=== PATIENT | male | born 1955 | race Caucasian/White ===

== ENCOUNTER 2019-05-21 23:46 | Emergency (ER) | payer OTHER ==
[2019-05-21] MEDS ORDERED: LORazepam 2 MG/ML INJ IV STA (23:50)
[2019-05-21] MEDS ORDERED: SODIUM CHLORIDE 0.9% 1,000 ML IV STA (23:55)
[2019-05-22 00:10] LABS: Glucose,Whole Blood 179 mg/dL (75-99)
[2019-05-22] MEDS ORDERED: LORazepam 2 MG/ML INJ IV STA ×2 (00:25→01:19)
[2019-05-22 00:50] LABS: Appearance,Urine Clear (Clear); Bacteria,Urine Rare /hpf; Bilirubin,Urine Negative (Negative); Blood,Urine Moderate (Negative); Color,Urine Light Yellow; Glucose,Urine (UA) Trace (Negative); Hyaline Casts,Urine 4 /lpf (0-2); Ketones,Urine 1+ (Negative); Leukocyte Esterase,Urine Negative (Negative); Mucus,Urine Rare /hpf; Nitrite,Urine Negative (Negative); Protein,Urine Trace (Negative); RBC,Urine 1 /hpf (0-5); Specific Gravity,Urine 1.015 (1.001-1.035); Squamous Epithelial Cell,Urine <1 /hpf (0-4); Urobilinogen,Urine <2.0 mg/dL (<2.0); WBC,Urine 3 /hpf (0-5)
[2019-05-22 00:54] LABS: Amphetamine Screen,Urine Not Detected (NotDetected); Barbiturate Screen,Urine Not Detected (NotDetected); Benzodiazepines Screen,Urine Not Detected (NotDetected); Cocaine Screen,Urine Not Detected (NotDetected); Methadone Screen, Urine Not Detected (NotDetected); Opiate Screen,Urine Not Detected (NotDetected); Oxycodone Screen, Urine Not Detected (NotDetected); Phencyclidine Screen,Urine Not Detected (NotDetected); Tricyclic Antidepressant,Urine Not Detected (NotDetected); Urn Cannabinoid Scrn Detected (NotDetected)
[2019-05-22] MEDS ORDERED: MIDAZOLAM 1 MG/ML 5 ML VIAL IV STA (01:05)
--- NOTE | 2019-05-22 01:14 | CT ---
EXAMINATION TYPE: CT brain wo con DATE OF EXAM: 05/22/2019 COMPARISON: None HISTORY: Seizure CT DLP: mGycm Automated exposure control for dose reduction was used. There is mild cerebral cortical atrophy. There is no mass effect nor midline shift. There is no sign of intracranial hemorrhage. The calvarium is intact. IMPRESSION: Mild atrophy. No acute intracranial abnormality.
[2019-05-22] MEDS ORDERED: SODIUM CHLORIDE 0.9% 1,000 ML IV ONE (01:29)
--- NOTE | 2019-05-22 01:29 | ED ---
Seizure HPI - General Chief Complaint: Seizure Stated Complaint: abd pain Time Seen by Provider: 05/21/19 23:55 Source: patient, EMS Mode of arrival: EMS Limitations: no limitations - History of Present Illness Initial Comments: Gene is a 64-year-old woman who presents the emergency department with altered mental status after an apparent call for abdominal pain. EMS reports they were called at home for abdominal pain, patient outside attempting to urinate. Patient has been minimally verbal with them grunting and combative. Patient offered no history. Within 3 minutes of arrival in the emergency department the patient had a tonic-clonic seizure requiring Ativan. brother arrived in the emergency department to provide further history. 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 Patient has refused to see a doctor since completing treatment for the cancer. She reports that the patient suffers from chronic abdominal pain, eats Tums constantly and has a diet consists primarily of candy and soda. He reports that this evening he thought he heard the patient fall however didn't hear him get back up so when he went to check on him feel the patient wandering around house grunting not speaking and appeared to be confused. He reports that the patient seemed to be leaking urine and wasn't sure if he was trying to urinate. Mother reports that the patient has a distant history of alcoholism but has been relatively sober for the past 3 years. He states that the patient needed had maybe 5 beers over the past 5 years but is not a daily drinker. He has no seizure history. Smokes marijuana but doesn't believe his brother uses any other drugs. - Related Data Allergies Allergy/AdvReac Type Severity Reaction Status Date / Time No Known Allergies Allergy Verified 05/22/19 00:01 Review of Systems ROS Statement: Those systems with pertinent positive or pertinent negative responses have been documented in the HPI. ROS Other: All systems not noted in ROS Statement are negative. Past Medical History Additional Past Medical History / Comment(s): UNKNOWN History of Any Multi-Drug Resistant Organisms: Unobtainable Additional Past Surgical History / Comment(s): UNKNOWN Past Psychological History: Unable to Obtain Smoking Status: Unknown if ever smoked Past Alcohol Use History: Unable to Obtain Past Drug Use History: Unable to Obtain General Exam - General Exam Comments Initial Comments: Physical Exam GENERAL: Chronically ill appearing Underweight HENT: Normocephalic, Atraumatic. EYES: PERRL, EOMI PULMONARY: Unlabored respirations. No audible rales rhonchi or wheezing was noted. CARDIOVASCULAR: Tachycardic ABDOMEN: Scaphoid SKIN: Dry : Normal external genitalia NEUROLOGIC: Non-verbal, grunting Active tonic clonic sizure MUSCULOSKELETAL: Generalized atrophy No obvious injury PSYCHIATRIC: Unable to evaluate Limitations: no limitations Course Vital Signs 05/21/19 05/22/19 05/22/19 23:50 00:07 00:36 Temperature Pulse Rate 118 H 114 H 109 H Respiratory 20 18 18 Rate Blood Pressure 148/95 159/100 152/95 O2 Sat by Pulse 100 100 Oximetry 05/22/19 05/22/19 05/22/19 02:00 02:15 02:50 Temperature Pulse Rate 112 H 118 H 93 Respiratory 16 16 16 Rate Blood Pressure 129/104 207/128 174/111 O2 Sat by Pulse 100 100 96 Oximetry 05/22/19 02:54 Temperature 98.6 F Pulse Rate Respiratory Rate Blood Pressure O2 Sat by Pulse Oximetry Procedures - Intubation Sedative: Etomidate Paralytic: Rocuronium Laryngoscope: Alexsandra Size: 4 ET Tube Size: 8 ET Tube Uncuffed: No Tube Secured Depth (cm): 26 Tube Secured Location: lips Tube Placement Confirmation: visualized tube passing through cords, equal breath sounds bilaterally, no breath sounds over epigastrium, confirmation by capnometry Patient Tolerated Procedure: no complications Intubation Complications: none Medical Decision Making - Medical Decision Making The patient was seen and evaluated upon arrival the emergency department, patient was grunting and agitated not providing any history and upon arrival began having tonic-clonic seizure activity. Ativan was ordered. Seizure activity stopped. Patient was assessed labs were obtained CT of the head was ordered Patient seemed to be agitated in the postictal state and additional doses of Ativan and Versed were ordered and administered Despite these relatively high doses of benzodiazepines the patient continued to be agitated and fighting at his restraints, pulling it IV Concerning the patient did not return to baseline within one hour after his seizure decision was made to intubate and sedate the patient Patient's labs resulted with multiple abnormalities most significant for a lactic acid of 14 likely reactive to the patient's recent seizure Brother arrived at bedside was able to provide further history, uncertain if the patient had a seizure at home and was postictal, Brother didn't think he had her to falling. The patient does suffer from chronic abdominal pain is very poor diet. His previous cancer patient with no follow-up. At this time Brother agrees with plan for intubation. Patient was intubated without difficulty. Patient was taken for computed tomography scan of the chest abdomen and pelvis for further assessment. Computed tomography scan resulted with a thickened gastric lining, thickened bladder, calcified aorta but no acute findings per my review. Radiology review agrees with this At this time I have no cause for the patient's acute new onset seizure and status epilepticus with altered mental status. Patient responding well to propofol. Patient noted to be hypertensive and was given a dose of labetalol. This time patient care was discussed with the transferring physician Dr. Luna at [facility] who accepts transfer for admission to ICU for evaluation by neurology. - Lab Data Result diagrams: 05/21/19 00:00 05/21/19 00:00 Lab Results 05/21/19 05/21/19 05/22/19 Range/Units 00:00 00:00 00:08 WBC 12.2 H (3.8-10.6) k/uL RBC 4.87 (4.30-5.90) m/uL Hgb 14.6 (13.0-17.5) gm/dL Hct 46.8 (39.0-53.0) % MCV 96.0 (80.0-100.0) fL MCH 29.9 (25.0-35.0) pg MCHC 31.2 (31.0-37.0) g/dL RDW 13.6 (11.5-15.5) % Plt Count 271 (150-450) k/uL Neutrophils % 79 % Lymphocytes % 14 % Monocytes % 5 % Eosinophils % 0 % Basophils % 0 % Neutrophils # 9.6 H (1.3-7.7) k/uL Lymphocytes # 1.7 (1.0-4.8) k/uL Monocytes # 0.6 (0-1.0) k/uL Eosinophils # 0.0 (0-0.7) k/uL Basophils # 0.1 (0-0.2) k/uL Sample Site ABG pH (7.35-7.45) ABG pCO2 (35-45) mmHg ABG pO2 (83-108) mmHg ABG HCO3 (21-25) mmol/L ABG Total CO2 (19-24) mmol/L ABG O2 Saturation (94-97) % ABG Base Excess mmol/L Jovani Test FiO2 % Sodium 146 H (137-145) mmol/L Potassium 5.5 H (3.5-5.1) mmol/L Chloride 105 (98-107) mmol/L Carbon Dioxide 21 L (22-30) mmol/L Anion Gap 20 mmol/L BUN 10 (9-20) mg/dL Creatinine 0.99 (0.66-1.25) mg/dL Est GFR (CKD-EPI)AfAm >90 (>60 ml/min/1.73 sqM) Est GFR (CKD-EPI)NonAf 81 (>60 ml/min/1.73 sqM) Glucose 179 H (74-99) mg/dL POC Glucose (mg/dL) 179 H (75-99) mg/dL POC Glu Automatic Chief ID Wednesday, Monserrat Plasma Lactic Acid Aaron (0.7-2.0) mmol/L Calcium 10.6 H (8.4-10.2) mg/dL Total Bilirubin 0.4 (0.2-1.3) mg/dL AST 42 (17-59) U/L ALT 23 (4-49) U/L Alkaline Phosphatase 91 (38-126) U/L Total Protein 8.2 (6.3-8.2) g/dL Albumin 5.0 (3.5-5.0) g/dL Lipase 86 (23-300) U/L Urine Color Urine Appearance (Clear) Urine pH (5.0-8.0) Ur Specific [place] (1.001-1.035) Urine Protein (Negative) Urine Glucose (UA) (Negative) Urine Ketones (Negative) Urine Blood (Negative) Urine Nitrite (Negative) Urine Bilirubin (Negative) Urine Urobilinogen (<2.0) mg/dL Ur Leukocyte Esterase (Negative) Urine RBC (0-5) /hpf Urine WBC (0-5) /hpf Ur Squamous Epith Cells (0-4) /hpf Urine Bacteria (None) /hpf Hyaline Casts (0-2) /lpf Urine Mucus (None) /hpf Salicylates <1.0 mg/dL Urine Opiates Screen (NotDetected) Ur Oxycodone Screen (NotDetected) Urine Methadone Screen (NotDetected) Ur Propoxyphene Screen (NotDetected) Acetaminophen <10.0 ug/mL Ur Barbiturates Screen (NotDetected) U Tricyclic Antidepress (NotDetected) Ur Phencyclidine Scrn (NotDetected) Ur Amphetamines Screen (NotDetected) U Methamphetamines Scrn (NotDetected) U Benzodiazepines Scrn (NotDetected) Urine Cocaine Screen (NotDetected) U Marijuana (THC) Screen (NotDetected) Serum Alcohol <10 mg/dL 05/22/19 05/22/19 05/22/19 Range/Units 00:09 00:21 02:21 WBC (3.8-10.6) k/uL RBC (4.30-5.90) m/uL Hgb (13.0-17.5) gm/dL Hct (39.0-53.0) % MCV (80.0-100.0) fL MCH (25.0-35.0) pg MCHC (31.0-37.0) g/dL RDW (11.5-15.5) % Plt Count (150-450) k/uL Neutrophils % % Lymphocytes % % Monocytes % % Eosinophils % % Basophils % % Neutrophils # (1.3-7.7) k/uL Lymphocytes # (1.0-4.8) k/uL Monocytes # (0-1.0) k/uL Eosinophils # (0-0.7) k/uL Basophils # (0-0.2) k/uL Sample Site right radial ABG pH 7.38 (7.35-7.45) ABG pCO2 35 (35-45) mmHg ABG pO2 240 H (83-108) mmHg ABG HCO3 21 (21-25) mmol/L ABG Total CO2 22 (19-24) mmol/L ABG O2 Saturation 99.4 H (94-97) % ABG Base Excess -4.4 mmol/L Jovani Test Yes FiO2 50 % Sodium (137-145) mmol/L Potassium (3.5-5.1) mmol/L Chloride (98-107) mmol/L Carbon Dioxide (22-30) mmol/L Anion Gap mmol/L BUN (9-20) mg/dL Creatinine (0.66-1.25) mg/dL Est GFR (CKD-EPI)AfAm (>60 ml/min/1.73 sqM) Est GFR (CKD-EPI)NonAf (>60 ml/min/1.73 sqM) Glucose (74-99) mg/dL POC Glucose (mg/dL) (75-99) mg/dL POC Glu Automatic Chief ID Plasma Lactic Acid Aaron 14.6 H* (0.7-2.0) mmol/L Calcium (8.4-10.2) mg/dL Total Bilirubin (0.2-1.3) mg/dL AST (17-59) U/L ALT (4-49) U/L Alkaline Phosphatase (38-126) U/L Total Protein (6.3-8.2) g/dL Albumin (3.5-5.0) g/dL Lipase (23-300) U/L Urine Color Light Yellow Urine Appearance Clear (Clear) Urine pH 5.0 (5.0-8.0) Ur Specific [place] 1.015 (1.001-1.035) Urine Protein Trace H (Negative) Urine Glucose (UA) Trace H (Negative) Urine Ketones 1+ H (Negative) Urine Blood Moderate H (Negative) Urine Nitrite Negative (Negative) Urine Bilirubin Negative (Negative) Urine Urobilinogen <2.0 (<2.0) mg/dL Ur Leukocyte Esterase Negative (Negative) Urine RBC 1 (0-5) /hpf Urine WBC 3 (0-5) /hpf Ur Squamous Epith Cells <1 (0-4) /hpf Urine Bacteria Rare H (None) /hpf Hyaline Casts 4 H (0-2) /lpf Urine Mucus Rare H (None) /hpf Salicylates mg/dL Urine Opiates Screen Not Detected (NotDetected) Ur Oxycodone Screen Not Detected (NotDetected) Urine Methadone Screen Not Detected (NotDetected) Ur Propoxyphene Screen Not Detected (NotDetected) Acetaminophen ug/mL Ur Barbiturates Screen Not Detected (NotDetected) U Tricyclic Antidepress Not Detected (NotDetected) Ur Phencyclidine Scrn Not Detected (NotDetected) Ur Amphetamines Screen Not Detected (NotDetected) U Methamphetamines Scrn Not Detected (NotDetected) U Benzodiazepines Scrn Not Detected (NotDetected) Urine Cocaine Screen Not Detected (NotDetected) U Marijuana (THC) Screen Detected H (NotDetected) Serum Alcohol mg/dL Critical Care Time Critical Care Time: Yes Total Critical Care Time: 45 Critical Care Time: Critical care time was exclusive of separately billable procedures and treating other patients and teaching time. Critical care was necessary to treat or prevent imminent or life-threatening deterioration. Given the critical condition in which the patient arrived, the patient was immediately assessed by myself and the nurse, and cardiac monitoring initiated due to the potential for rapid decompensation of the patient's clinical condition. During the course of the patients stay, I spent a considerable amount of time at the bedside performing serial re-evaluations of the patient's hemodynamic and clinical status because of the recognized potential threat to life or limb in this condition. I then had a chance to review not only all of the available current laboratory and radiographic studies obtained today, but I also reviewed old records available to me at the time. Additionally, any ancil leon information available including manager installation records were reviewed. Sequential vital signs were obtained. Disposition Clinical Impression: New onset seizure, Lactic acidosis, Failure to thrive in adult Disposition: OTHER INSTITUTION NOT DEFINED Condition: Critical Is patient prescribed a controlled substance at d/c from ED?: No Referrals: None,Stated [Primary Care Provider] - 1-2 days - Out of Hospital Transfer - Req. Specs Out of Hospital Transfer - Requested Specifics: Other Emergency Center ([facility])
[2019-05-22] MEDS ORDERED: SODIUM CHLORIDE 0.9% 1,000 ML IV SCH (01:30)
[2019-05-22] MEDS ORDERED: PROPOFOL 100 ML IV ONE (01:34)
[2019-05-22] MEDS ORDERED: ROCURONIUM BROMIDE 10 MG/ML 5 ML VIAL IV STA (01:39)
[2019-05-22] MEDS ORDERED: ETOMIDATE 2 MG/ML 10 ML VIAL IVP STA (01:39)
[2019-05-22] MEDS ORDERED: PROPOFOL 1,000 MG in EMPTY BAG 1 BAG IV ONE (02:10)
[2019-05-22 02:24] VITALS: RESP 16
[2019-05-22] MEDS: METOPROLOL TARTRATE 5 MG/5 ML VIAL IVP SCH ×2 (02:29→02:39)
[2019-05-22 02:32] LABS: ABG Base Excess -4.4 mmol/L; ABG HCO3 21 mmol/L (21-25); ABG Oxygen Saturation 99.4 % (94-97); ABG PCO2 35 mmHg (35-45); ABG PH 7.38 (7.35-7.45); ABG PO2 240 mmHg (83-108); ABG TCO2 22 mmol/L (19-24); Allen Test Performed? Yes
--- NOTE | 2019-05-22 02:32 | CT ---
EXAMINATION TYPE: CT ChestAbdPelvis w con DATE OF EXAM: 05/22/2019 COMPARISON: None HISTORY: AMS CT DLP: 736 mGycm Automated exposure control for dose reduction was used. CONTRAST: Performed with IV Contrast, patient injected with 100 mL of Isovue 300. Multiple axial sections were obtained from the thoracic inlet to the floor the pelvis with intravenou s contrast. There is bullous pulmonary emphysema. There is endotracheal tube in good position. Ascending aorta me asures 3.5 cm. There is no dissection. There are no hilar masses. There is no mediastinal adenopathy. There is a somewhat spiculated 2 cm mass with minimal cavitation in the lateral aspect right upper lo be adjacent to the pleura. There is coarse reticular density right upper lobe suggestive of scarring. There is pleural thickening at the right lung apex. There is mild infiltrate and atelectasis left posterior lung base. There is minimal atelectasis right posterior lung base. Liver shows no focal defect. Gallbladder appears normal. Spleen is intact. Stomach is intact. There i s no sign of pancreatic mass. The bile ducts are not dilated. There is no adrenal mass. Kidneys show satisfactory contrast opacification. There is no hydronephrosi s. Ureters are not dilated. There is no retroperitoneal adenopathy. There is urinary bladder wall thi ckening with Bella catheter. There is small amount of air in the urinary bladder. There is no mesenteric edema. There is no ascites or free air. There is no sign of a bowel obstructio n. Appendix has normal size. I see no sign of thickened appendix. The thoracic and lumbar vertebra have fairly normal alignment. There is no compression fracture. Ther e are mild spondylotic changes. Sternum is intact. The bony pelvis is intact. IMPRESSION: Pleural thickening at the right lung apex with upper lobe bilateral bullous pulmonary emphysema. Spic ulated cavitating infiltrate lateral aspect right upper lobe more likely related to scarring. Tumor o r small lung abscess not entirely excluded. Follow-up exam recommended to show clearing or stability. Abdomen CT scan shows significant urinary bladder wall thickening suggestive of nonspecific cystitis.
[2019-05-22] MEDS ORDERED: METOPROLOL TARTRATE 5 MG/5 ML VIAL IVP STA (02:37)
[2019-05-22] MEDS ORDERED: fentaNYL (PF) 50 MCG/ML 2 ML AMP IVP STA (02:48)
[2019-05-22 02:50] VITALS: BP 174/111; PULSE 93
[2019-05-22 02:54] VITALS: TEMP 98.6
== END 2019-05-22 03:22 | disposition short-term general hospital (02) ==
LOC: EC 23:46
DX: E87.2 Acidosis (principal); G40.901 Epilepsy, unspecified, not intractable, with status epilepticus; R62.7 Adult failure to thrive; R45.1 Restlessness and agitation; G89.29 Other chronic pain; R10.9 Unspecified abdominal pain; I70.0 Atherosclerosis of aorta; R41.82 Altered mental status, unspecified; I10 Essential (primary) hypertension; M62.50 Muscle wasting and atrophy, not elsewhere classified, unspecified site; R00.0 Tachycardia, unspecified; R63.6 Underweight; F10.21 Alcohol dependence, in remission; Z85.819 Personal history of malignant neoplasm of unspecified site of lip, oral cavity, and pharynx; Z92.3 Personal history of irradiation; Z68.1 Body mass index [BMI] 19.9 or less, adult; Z53.8 Procedure and treatment not carried out for other reasons
CPT/HCPCS: 36415 ×2; 36600; 94002; 93005; 80053; 82805; 83605; 83690; 85025; 81001; 80306; 83520; 70450; 71260; 74177; 99291; 31500; 96374; 96375 ×3; 96376 ×2; 96361 ×2; G0480 ×2; J2060 ×2; J2250; J3010; J2704; Q9967; 80320; 80329

== ENCOUNTER 2019-08-13 16:10 | Inpatient (IN) | payer OTHER ==
[2019-08-13] MEDS ORDERED: SODIUM CHLORIDE 0.9% 1,000 ML IV STA (16:15)
--- NOTE | 2019-08-13 16:19 | ED ---
General Adult HPI - General Stated complaint: Unresponsive/seizure Time Seen by Provider: 08/13/19 16:10 Source: EMS, RN notes reviewed Mode of arrival: EMS Limitations: altered mental status - History of Present Illness Initial comments: Patient is a 64-year-old male presenting to the emergency Department with reported seizure. Patient was found at home having seizure. Onset was not witnessed however total time that was witnessed was just a minute or 2. Patient was postictal and less responsive upon EMS arrival. Patient has started to arouse since that time. Upon presentation to the emergency department patient can say one or 2 words. Difficulty following commands. Further history is limited. Patient reportedly does not take seizure medication as directed [facility] has a history of seizures. - Related Data Allergies Allergy/AdvReac Type Severity Reaction Status Date / Time No Known Allergies Allergy Verified 05/22/19 00:01 Review of Systems ROS Statement: Those systems with pertinent positive or pertinent negative responses have been documented in the HPI. ROS Other: All systems not noted in ROS Statement are negative. Limitations: ROS unobtainable due to patients medical condition Past Medical History Additional Past Medical History / Comment(s): UNKNOWN History of Any Multi-Drug Resistant Organisms: Unobtainable Additional Past Surgical History / Comment(s): UNKNOWN Past Psychological History: Unable to Obtain Smoking Status: Unknown if ever smoked Past Alcohol Use History: Unable to Obtain Past Drug Use History: Unable to Obtain General Exam Limitations: altered mental status, physical limitation General appearance: other (Drowsy) Head exam: Present: atraumatic, normocephalic Eye exam: Present: normal appearance, PERRL ENT exam: Present: normal oropharynx Neck exam: Present: normal inspection. Absent: tenderness Respiratory exam: Present: normal lung sounds bilaterally Cardiovascular Exam: Present: regular rate, normal rhythm GI/Abdominal exam: Present: soft. Absent: tenderness Extremities exam: Present: normal inspection Neurological exam: Present: other (Drowsy. Does not follow commands. Moves all extremities) Expanded Motor strength exam: RUE: 5, LUE: 5, RLE: 5, LLE: 5 Eye Response: (4) open spontaneously Motor Response: (4) withdraws to pain Verbal Response: (3) inappropriate words Psychiatric exam: Present: other (Drowsy) Skin exam: Present: normal color Course Vital Signs 08/13/19 08/13/19 08/13/19 16:11 16:31 16:58 Temperature 97.7 F Pulse Rate 122 H 97 134 H Respiratory 16 16 20 Rate Blood Pressure 124/77 103/76 161/115 O2 Sat by Pulse 98 98 99 Oximetry 08/13/19 08/13/19 17:18 18:27 Temperature Pulse Rate 118 H 114 H Respiratory 16 16 Rate Blood Pressure 144/97 140/98 O2 Sat by Pulse 99 92 L Oximetry EKG Findings - EKG Comments: EKG Findings:: Sinus tachycardia 123. MA 148. QRS 80. QT 316. QTC 452. Right axis. Normal QRS. No acute ST change. Artifact is present. Medical Decision Making - Medical Decision Making Patient reevaluated several times. Patient is maintaining airway. Case was discussed in detail with Dr. Quintero, who will admit covering for hospital call. - Lab Data Result diagrams: 08/13/19 16:37 08/13/19 16:37 Lab Results 08/13/19 08/13/19 08/13/19 Range/Units 16:37 16:37 16:37 WBC 16.4 H (3.8-10.6) k/uL RBC 4.03 L (4.30-5.90) m/uL Hgb 12.7 L (13.0-17.5) gm/dL Hct 40.0 (39.0-53.0) % MCV 99.3 (80.0-100.0) fL MCH 31.6 (25.0-35.0) pg MCHC 31.9 (31.0-37.0) g/dL RDW 14.3 (11.5-15.5) % Plt Count 226 (150-450) k/uL Neutrophils % 90 % Lymphocytes % 4 % Monocytes % 4 % Eosinophils % 1 % Basophils % 0 % Neutrophils # 14.8 H (1.3-7.7) k/uL Lymphocytes # 0.7 L (1.0-4.8) k/uL Monocytes # 0.7 (0-1.0) k/uL Eosinophils # 0.1 (0-0.7) k/uL Basophils # 0.0 (0-0.2) k/uL Hypochromasia Moderate Sodium 141 (137-145) mmol/L Potassium 3.3 L (3.5-5.1) mmol/L Chloride 111 H (98-107) mmol/L Carbon Dioxide 11 L (22-30) mmol/L Anion Gap 19 mmol/L BUN 11 (9-20) mg/dL Creatinine 0.73 (0.66-1.25) mg/dL Est GFR (CKD-EPI)AfAm >90 (>60 ml/min/1.73 sqM) Est GFR (CKD-EPI)NonAf >90 (>60 ml/min/1.73 sqM) Glucose 124 H (74-99) mg/dL Calcium 7.9 L (8.4-10.2) mg/dL Magnesium 2.3 (1.6-2.3) mg/dL Total Bilirubin 0.2 (0.2-1.3) mg/dL AST 25 (17-59) U/L ALT 16 (4-49) U/L Alkaline Phosphatase 79 (38-126) U/L Total Protein 6.7 (6.3-8.2) g/dL Albumin 3.8 (3.5-5.0) g/dL Urine Color Light Yellow Urine Appearance Cloudy (Clear) Urine pH 5.0 (5.0-8.0) Ur Specific [place] 1.015 (1.001-1.035) Urine Protein 1+ H (Negative) Urine Glucose (UA) Negative (Negative) Urine Ketones 1+ H (Negative) Urine Blood Small H (Negative) Urine Nitrite Negative (Negative) Urine Bilirubin Negative (Negative) Urine Urobilinogen <2.0 (<2.0) mg/dL Ur Leukocyte Esterase Negative (Negative) Urine RBC 1 (0-5) /hpf Urine WBC 1 (0-5) /hpf Amorphous Sediment Rare H (None) /hpf Urine Bacteria Occasional H (None) /hpf Hyaline Casts 27 H (0-2) /lpf Urine Mucus Rare H (None) /hpf Urine Opiates Screen Not Detected (NotDetected) Ur Oxycodone Screen Not Detected (NotDetected) Urine Methadone Screen Not Detected (NotDetected) Ur Propoxyphene Screen Not Detected (NotDetected) Ur Barbiturates Screen Not Detected (NotDetected) U Tricyclic Antidepress Not Detected (NotDetected) Ur Phencyclidine Scrn Not Detected (NotDetected) Ur Amphetamines Screen Not Detected (NotDetected) U Methamphetamines Scrn Not Detected (NotDetected) U Benzodiazepines Scrn Not Detected (NotDetected) Urine Cocaine Screen Not Detected (NotDetected) U Marijuana (THC) Screen Detected H (NotDetected) Serum Alcohol <10 mg/dL - Radiology Data Radiology results: report reviewed (Computed tomography scan of the brain shows atrophy. No change from previous. Probable chronic small vessel ischemia.), image reviewed (X-ray shows no acute process) Disposition Clinical Impression: Generalized seizure Disposition: ADMITTED IP TO THIS HOSP Is patient prescribed a controlled substance at d/c from ED?: No Referrals: None,Stated [Primary Care Provider] - 1-2 days Decision Time: 19:01
[2019-08-13] MEDS ORDERED: LORazepam 2 MG/ML INJ IV STA ×2 (16:33→16:49)
[2019-08-13 16:57] LABS: Basophils % (A) 0 %; Eosinophils # (A) 0.1 k/uL (0-0.7); Eosinophils % (A) 1 %; HGB 12.7 gm/dL (13.0-17.5); Hypochromasia Moderate; Lymphocytes # (A) 0.7 k/uL (1.0-4.8); Lymphocytes % (A) 4 %; MCH 31.6 pg (25.0-35.0); MCHC 31.9 g/dL (31.0-37.0); MCV 99.3 fL (80.0-100.0); Mean Platelet Volume 7.7; Monocytes # (A) 0.7 k/uL (0-1.0); Monocytes % (A) 4 %; Neutrophils # (A) 14.8 k/uL (1.3-7.7); Neutrophils % (A) 90 %; Platelet Count 226 k/uL (150-450); RBC 4.03 m/uL (4.30-5.90); RDW 14.3 % (11.5-15.5); WBC 16.4 k/uL (3.8-10.6)
[2019-08-13 16:59] LABS: Amorphous Sediment,Urine Rare /hpf; Appearance,Urine Cloudy (Clear); Bacteria,Urine Occasional /hpf; Bilirubin,Urine Negative (Negative); Blood,Urine Small (Negative); Color,Urine Light Yellow; Glucose,Urine (UA) Negative (Negative); Hyaline Casts,Urine 27 /lpf (0-2); Ketones,Urine 1+ (Negative); Leukocyte Esterase,Urine Negative (Negative); Mucus,Urine Rare /hpf; Nitrite,Urine Negative (Negative); Protein,Urine 1+ (Negative); RBC,Urine 1 /hpf (0-5); Specific Gravity,Urine 1.015 (1.001-1.035); Urobilinogen,Urine <2.0 mg/dL (<2.0); WBC,Urine 1 /hpf (0-5)
[2019-08-13 17:00] LABS: AST 25 U/L (17-59); African American GFR (CKD) >90 (>60 ml/min/1.73 sqM); Albumin 3.8 g/dL (3.5-5.0); Alcohol <10 mg/dL; Alkaline Phosphatase 79 U/L (38-126); Anion Gap 19 mmol/L; Blood Urea Nitrogen 11 mg/dL (9-20); Calcium 7.9 mg/dL (8.4-10.2); Carbon Dioxide 11 mmol/L (22-30); Chloride 111 mmol/L (98-107); Glucose 124 mg/dL (74-99); Magnesium 2.3 mg/dL (1.6-2.3); Non-African American GFR(CKD) >90 (>60 ml/min/1.73 sqM); Potassium 3.3 mmol/L (3.5-5.1); Sodium 141 mmol/L (137-145); Total Bilirubin 0.2 mg/dL (0.2-1.3); Total Protein 6.7 g/dL (6.3-8.2)
[2019-08-13 17:06] LABS: ALT 16 U/L (4-49)
[2019-08-13 17:08] LABS: Amphetamine Screen,Urine Not Detected (NotDetected); Barbiturate Screen,Urine Not Detected (NotDetected); Benzodiazepines Screen,Urine Not Detected (NotDetected); Cocaine Screen,Urine Not Detected (NotDetected); Methadone Screen, Urine Not Detected (NotDetected); Opiate Screen,Urine Not Detected (NotDetected); Oxycodone Screen, Urine Not Detected (NotDetected); Phencyclidine Screen,Urine Not Detected (NotDetected); Tricyclic Antidepressant,Urine Not Detected (NotDetected); Urn Cannabinoid Scrn Detected (NotDetected)
--- NOTE | 2019-08-13 17:34 | XR ---
EXAMINATION TYPE: XR chest 1V portable DATE OF EXAM: 08/13/2019 COMPARISON: CT 05/22/2019 HISTORY: Seizure TECHNIQUE: Single frontal view of the chest is obtained. FINDINGS: There is no focal air space opacity, pleural effusion, or pneumothorax seen. The cardiac silhouette size is within normal limits. Biapical pleural thickening is stable. There are emphysema tous changes within the lungs, scarring at the apices with bullous changes. The osseous structures ar e intact. Patient is rotated. IMPRESSION: No acute process.
--- NOTE | 2019-08-13 18:07 | CT ---
EXAMINATION TYPE: CT brain wo con DATE OF EXAM: 08/13/2019 COMPARISON: CT brain 05/22/2019 HISTORY: Seizure activity. CT DLP: 2855.4 mGycm Automated exposure control for dose reduction was used. Helical imaging through the brain FINDINGS: There is motion on the exam. There is no hemorrhage or hydrocephalus. Periventricular white matter sh ows patchy low attenuation. There is cortical atrophy. Cerebral vascular calcifications are present. IMPRESSION: FINDINGS ARE SIMILAR TO PRIOR EXAM. AGE-RELATED CHANGES OF ATROPHY AND PROBABLE CHRONIC SMALL VESSEL ISCHEMIA. NO ACUTE BRAIN ABNORMALITIES EVIDENT.
[2019-08-13] MEDS ORDERED: POTASSIUM CHLORIDE 2 MEQ/ML 20 ML VIAL IVPB STA (18:56)
[2019-08-13] MEDS ORDERED: LORazepam 2 MG/ML INJ IV PRN (19:02)
[2019-08-13] MEDS ORDERED: NALOXONE 0.4 MG/ML 1 ML VIAL IV PRN (19:02)
[2019-08-13] MEDS ORDERED: ENALAPRILAT 1.25 MG/ML 1 ML VIAL IVP PRN (19:03)
[2019-08-13] MEDS ORDERED: ENALAPRILAT 1.25 MG/ML 1 ML VIAL IVP STA (19:03)
[2019-08-13] MEDS ORDERED: POTASSIUM CHLORIDE 20 MEQ in WATER FOR INJECTION 1 100ML.BAG IVPB ONE (19:15)
[2019-08-13] MEDS ORDERED: levETIRAcetam IV 750 MG in SODIUM CHLORIDE 0.9% 100 ML IVPB ONE (19:15)
[2019-08-13] MEDS: 0.9% NACL WITH KCL 20 MEQ/L 1,000 ML IV SCH (21:13)
[2019-08-14] MEDS: levETIRAcetam IV 750 MG in SODIUM CHLORIDE 0.9% 100 ML IVPB SCH ×2 (08:10→20:15)
[2019-08-14] MEDS: 0.9% NACL WITH KCL 20 MEQ/L 1,000 ML IV SCH ×2 (08:31→20:16)
[2019-08-14 10:52] VITALS: BMI 16.2
--- NOTE | 2019-08-14 14:09 | PN ---
PROGRESS NOTE CHIEF COMPLAINT: Seizure. HISTORY OF PRESENT ILLNESS: This gentleman is doing well and he has had no problems with headaches, neurologic problems, recurrent seizure activity, etc. PHYSICAL EXAMINATION: Vital signs are normal and the chest is clear. The cardiac exam is normal and the abdomen is soft and nontender. Neurologically, he is intact. Blood pressure has gone down to 103/64. IMPRESSION: 1. 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 2. Episode of hypertension. PLAN: Progress activity and continue to monitor neurologic status and further evaluation regarding his seizure activity. MMODL / IJN: [id number] /
--- NOTE | 2019-08-14 14:09 | HP ---
HISTORY AND PHYSICAL CHIEF COMPLAINT: Seizure. HISTORY OF PRESENT ILLNESS: This gentleman came to the emergency room in a postictal state after he had apparently had a seizure. It is not known if he has any seizure difficulties in the past, head injuries, etc. Review of systems was not reliable. Past medical history, family history and personal and social histories reveal that he is not allergic to any medication nor taking any. Surgically he has had a procedure on the left elbow. He denies drinking at all. In the [place] [id number], but otherwise his labs were unremarkable. PHYSICAL EXAMINATION: Blood pressure is 140/98 and then 161/50. Pulse 78, respirations of 32, and he is afebrile. In general he appeared to be somewhat disheveled, in no acute distress. Skin color is normal and skin is warm, dry. Lymph nodes not enlarged. Head, ears, eyes, nose, mouth, and throat were normal. Neck veins not distended. Thyroid not enlarged. The chest is clear. Cardiac exam is normal. No murmurs or extra sounds. The abdomen is flat, soft, nontender without visceromegaly or masses. Bowel sounds present. Extremities normal Neurologically he is intact. He is admitted to the hospital diagnoses: 1. New onset seizure disorder. 2. Hypertension. 3. Leukocytosis. PLAN: 1. Bed rest. 2. IV fluids. 3. Seizure precautions. 4. Follow laboratory studies and blood pressure. MMODL / IJN: [id number] /
--- NOTE | 2019-08-14 19:14 | P.CNNES ---
History of Present Illness Consult date: 08/14/19 Reason for Consult: breakthrough seizures History of Present Illness: this new neurology consult requested for further advice recommendations were 64-year-old gentleman who was brought into the emergency room after his brother found him seizing for about 2 minutes. According to the notes when the EMS arrived he was postictal and he continued to be postictal still in the emergency room upon arrival. According to the notes his brother stated that his brother has a seizure condition but does not take his medications. Patient was loaded with Keppra IV 750 and is now on this every 12 hours. He has had no further seizure report since admission. Review of his chart shows pertinent labs include an elevated white count 16.4 without a left shift. This can be a usual finding for seizure activity. Calcium level decreased 7.9. This also could be a potential for triggering lowering seizure threshold. Vital signs revealed hypertension and tachycardia on admission. Blood pressure initially was 161/50 and 1 4497. The patient is a very poor historian. He denies using any drugs though he is extremely thin and has the body habitus of adult failure to thrive often what can be seen in someone with chronic methamphetamine abuse or possibly even with lung cancer. He does admit to smoking ever since he was a child long-term smoking. Computed tomography scan of the head was performed which was unremarkable. No other imaging studies today. Past Medical History Additional Past Medical History / Comment(s): UNKNOWN History of Any Multi-Drug Resistant Organisms: None Reported Past Surgical History: Orthopedic Surgery Additional Past Surgical History / Comment(s): Left arm ortho surgery Past Psychological History: Unable to Obtain Smoking Status: Unknown if ever smoked Past Alcohol Use History: None Reported Past Drug Use History: Marijuana Medications and Allergies Home Medications Medication Instructions Recorded Confirmed Type No Known Home Medications 08/13/19 08/13/19 History Allergies Allergy/AdvReac Type Severity Reaction Status Date / Time No Known Allergies Allergy Verified 08/13/19 19:23 Physical Examination - Vital Signs Vital Signs: Vital Signs Temp Pulse Pulse Resp BP BP Pulse Ox 08/14/19 14:55 98.2 F 80 17 103/65 98 08/14/19 07:40 97.8 F 90 18 103/64 98 08/14/19 02:52 98.7 F 83 16 115/74 96 08/13/19 21:00 98.9 F 102 H 16 120/80 97 08/13/19 19:49 108 H 20 148/90 97 Intake and Output 08/14/19 08/14/19 08/14/19 06:59 14:59 22:59 Other: Voiding Method Diaper Diaper Incontinent Incontinent # Voids 3 1 Weight 54.4 kg 54.4 kg Gen. exam: Patient asleep but easily arousable. No acute distress. Thin body habitus consistent with adult failure to thrive. HEENT: Mildly injected sclera. Oropharynx appears clear. Neck appears supple. Pulses: Radial pedal pulses equal and symmetric. Extremities no clubbing of the digits noted but notable wasting of the intrinsic muscles of the hands and feet. Skin: No rash bruising or petechia noted. Neurological exam Mental status awake but drowsy. His speech is slow easily distractible. Speech is fluent. Pupils: 2 mm reactive to light and accommodation. Cranial nerves: Cranial nerves III through XII are intact. Motor examination: Moves all 4 extremities equally. Pronator drift is negative. No tremors noted or fasciculations. Strength is 5 out of 5 in the upper extremities bilaterally. 5 over 5 in the lower extremities bilaterally. Foot flexion and extension is 5 over 5. Severe muscle wasting is noted distally in both the hands and feet. Deep tendon reflexes: Trace over biceps triceps bilaterally. Patellar reflexes are absent bilaterally. Ankle jerks are absent bilaterally. Plantar responses are withdrawal bilaterally. No ankle clonus is elicited. Sensory examination grossly intact to light touch throughout. Coordination testing: [id number]-[id number] testing was slightly slow due to the patient's comprehension but no overt dysmetria was noted. He'll grant maneuvers intact. Gait examination deferred at this time due to patient's fall risk. Results - Laboratory Findings CBC and BMP: 08/13/19 16:37 08/13/19 16:37 Abnormal Lab Findings: Abnormal Labs 08/13/19 08/13/19 08/13/19 16:37 16:37 16:37 WBC 16.4 H RBC 4.03 L Hgb 12.7 L Neutrophils # 14.8 H Lymphocytes # 0.7 L Potassium 3.3 L Chloride 111 H Carbon Dioxide 11 L Glucose 124 H Calcium 7.9 L Urine Protein 1+ H Urine Ketones 1+ H Urine Blood Small H Amorphous Sediment Rare H Urine Bacteria Occasional H Hyaline Casts 27 H Urine Mucus Rare H U Marijuana (THC) Screen Detected H - Diagnostic Findings EKG: report reviewed Chest x-ray: report reviewed Assessment and Plan Assessment: 64-year-old male brought in by brother for witnessed 2 minute generalized tonic- clonic seizure with prolonged postictal state. Patient is poor historian but based on the notes, his brother reports he does have an underlying seizure disorder & was prescribed a seizure medication but was noncompliant. I was not able to elicit and confirmed this history from the patient himself. He denies ever having a seizure he also denies ever being on a seizure medication. He does report however that he has a history of multiple falls which is why he is disabled from work. These were work related injuries which makes me suspect that this patient has a history of head injury/ TIB. the patient adamantly denies ever using stimulant drugs of abuse or using alcohol. This patient's neurological exam is nonfocal at this time with the exception of extreme muscle wasting noted in the distal muscles of the hands and legs and feet bilaterally. The patient is extremely thin , consistent with an adult failure to thrive. With his long-standing history of smoking, raises concerns for increased risk for malignancy/ lung & throat. He does report that he has had increasing weight loss over the last year and more fatigued. he was unable to quantify the amount of weight loss. Summary 1. Generalized tonic-clonic seizure with postictal state. 2. Adult failure to thrive of undetermine etiology 3. Long-standing nicotine abuse. 4. Progressive weight loss with fatigue over the last year, suspect underlying malignancy. Plan 1. Continue with Keppra 750 mg IV every 12. Once he is seizure free for at least 24-48 hours and he has no adverse reactions to Keppra we will switch him over to the oral form. 2. MRI of the brain without contrast and MRA of the head and neck without contrast. MRI is to rule out possibly underlying structural mass lesion as a potential etiology, and/or encephalomalacia from prior head injury. MRA of the head and neck to rule out potential risk for aneurysm, dissection or high-grade stenosis. 3. Continue with aspiration risk and seizure precautions. Place patient on soft mechanical diet for now. He does not have any teeth. 4. A.m. labs: CBC with differential. Competence of metabolic panel. Lipid panel. hemoglobin A1c 5. Any breakthrough seizures lasting more than 3-4 minutes give Ativan 1 mg IV contact neurologist real estate economist at [phone]/Dr. Huber. 6. continue with neuro checks every 4 hours while awake Thank you for this consultation. This patient's prognosis remains guarded. Further recommendations will be made as this case evolves. Teresa Huber MD Board Certified in Neurology & Sleep Medicine
[2019-08-15] MEDS: levETIRAcetam IV 750 MG in SODIUM CHLORIDE 0.9% 100 ML IVPB SCH ×2 (07:54→20:28)
[2019-08-15 07:56] LABS: Basophils % (A) 0 %; Eosinophils # (A) 0.1 k/uL (0-0.7); Eosinophils % (A) 1 %; HCT 37.7 % (39.0-53.0); HGB 12.3 gm/dL (13.0-17.5); Lymphocytes # (A) 0.9 k/uL (1.0-4.8); Lymphocytes % (A) 13 %; MCH 31.6 pg (25.0-35.0); MCHC 32.8 g/dL (31.0-37.0); MCV 96.4 fL (80.0-100.0); Mean Platelet Volume 7.9; Monocytes # (A) 0.3 k/uL (0-1.0); Monocytes % (A) 5 %; Neutrophils # (A) 5.6 k/uL (1.3-7.7); Neutrophils % (A) 80 %; Platelet Count 206 k/uL (150-450); RBC 3.91 m/uL (4.30-5.90); RDW 14.4 % (11.5-15.5)
[2019-08-15 08:11] LABS: ALT 12 U/L (4-49); AST 70 U/L (17-59); African American GFR (CKD) >90 (>60 ml/min/1.73 sqM); Albumin 3.2 g/dL (3.5-5.0); Alkaline Phosphatase 72 U/L (38-126); Anion Gap 12 mmol/L; Blood Urea Nitrogen 18 mg/dL (9-20); Calcium 8.2 mg/dL (8.4-10.2); Carbon Dioxide 17 mmol/L (22-30); Chloride 108 mmol/L (98-107); Cholesterol 134 mg/dL (<200); HDL Cholesterol 42 mg/dL (40-60); LDL Cholesterol,Calculated 66 mg/dL (0-99); Non-African American GFR(CKD) >90 (>60 ml/min/1.73 sqM); Potassium 4.6 mmol/L (3.5-5.1); Sodium 137 mmol/L (137-145); Total Bilirubin 0.5 mg/dL (0.2-1.3); Total Protein 5.9 g/dL (6.3-8.2); Triglycerides 130 mg/dL (<150)
[2019-08-15 08:36] LABS: Glucose 47 mg/dL (74-99)
[2019-08-15] MEDS ORDERED: DEXTROSE 50% SYRINGE 50 ML IVP STA (08:38)
[2019-08-15] MEDS ORDERED: DEXTROSE 50% SYRINGE 50 ML IVP ONE (08:39)
[2019-08-15 09:03] LABS: Glucose,Whole Blood 143 mg/dL (75-99)
--- NOTE | 2019-08-15 13:34 | MR ---
MR brain without contrast HISTORY: Seizures Multiplanar multisequence imaging through the brain Correlation to CT brain 08/13/2019 -Brain protocol utilized due to patient's inability to cooperate with exam. There is no restricted diffusion to suggest subacute ischemia. Periventricular white matter shows con fluent, sub and juxtacortical and scattered hyperintensities on inversion recovery and T2-weighted se quences. There is no hemorrhage or hydrocephalus. The orbits show symmetric appearance. Corpus callos um, pituitary, cervical medullary junction, cerebellopontine angles are within normal limits. There a re normal vascular flow voids. IMPRESSION: No acute abnormality. Age-related changes of atrophy and probable chronic small vessel is chemia.
--- NOTE | 2019-08-15 13:45 | MR ---
EXAMINATION TYPE: MR angio head/neck wo con DATE OF EXAM: 08/15/2019 COMPARISON: MR brain same date HISTORY: Recent Seizure lasted about 2 min. Known Seizure disorder. TECHNIQUE: Time of flight images focusing on the [place] and neck were performed without con trast.. 2-D and 3-D postprocessing imaging is performed on an alternate workstation. FINDINGS: There is some motion on exam. Vertebral arteries are patent. Common carotid, internal and external carotid arteries are patent. Le ft and right subclavian arteries are patent centrally. [place] shows no embolus, dissection, or aneurysm. Persistent origin of the left poste rior cerebral artery is noted. IMPRESSION: No significant abnormality evident
[2019-08-15 14:01] LABS: Hemoglobin A1C 5.4 % (4.0-6.0)
[2019-08-15] MEDS: 0.9% NACL WITH KCL 20 MEQ/L 1,000 ML IV SCH (16:03)
--- NOTE | 2019-08-15 16:34 | EEG ---
ELECTROENCEPHALOGRAM REPORT DATE OF SERVICE: 08/15/2019 This is a 64-year-old gentleman with a known history for seizures and supposedly has history of remote head injury trauma. The patient was brought to the hospital after witnessed convulsing by his brother. Patient is currently on Keppra. TECHNICAL REPORT: This is an inpatient EEG performed on the [employer] EEG monitor with electrodes placed according to the International 10-20 system and a single EKG channel. Simultaneous video EEG monitoring was performed. This EEG was reviewed in both longitudinal, bipolar, average referential AND transverse montages. Photic stimulation was performed. Hyperventilation was not performed. The recording begins with the patient having excessive muscle artifact over the left frontal temporal head regions associated with muscle and movement artifact. Once settling down, the patient's background rhythm wanes between 7-8 Hz maximum, low amplitude that minimally attenuates with eye opening. Beta activity is prominent over the midline vertex. At 10:30:53 the patient is talking. This is associated with a low-voltage 8 Hz posterior dominant rhythm that appears symmetric and well modulated. At 10:31:50 the patient transitions into drowsiness. This is associated with slow rolling eye movements and the appearance of further slowing of the frequencies to both theta and delta waves. Briefly, the patient appeared to go into rapid eye movement sleep as noted by classic rapid eye movements in the eye electrodes. Arousal occurred at 10:38:28. This was associated with head movement, followed by the patient to begin talking. At 10:42:23, a low voltage single spike generalized discharge occurred over the left frontal temporal parietal head region with maximum negativity at the T5 electrode placement. This was not associated with any clinical correlate. IMPRESSION: This EEG is considered an abnormal full wake sleep EEG. Is considered abnormal due to the rare epileptiform activity that was noted in the left frontal parietal temporal head region towards the end of the study. Otherwise, the patient is awake background, drowsiness and stage II and rapid eye movement sleep, normal for the patient's stated age. If clinically indicated, serial EEGs are recommended and/or a more prolonged overnight study could provide additional information. MMODL / IJN: [id number] /
--- NOTE | 2019-08-15 22:07 | PN ---
PROGRESS NOTE CHIEF COMPLAINT: Seizure. HISTORY OF PRESENT ILLNESS: This gentleman is doing well. He has had no seizures. When he was being evaluated he wanted me to know that he had been a heavy drinker up until a few months ago and before the seizures happened, he had started drinking again. 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 The stage of that is not clear. PHYSICAL EXAMINATION: Chest is clear. Cardiac exam is normal. Abdomen is soft, nontender. IMPRESSION: 1. General debility and weakness. 2. Seizure disorder. 3. Alcoholism. 4. History of carcinoma of the throat. PLAN: Progress activity and diet and probably discharge in the next day or two. MMODL / IJN: [id number] /
[2019-08-16] MEDS: 0.9% NACL WITH KCL 20 MEQ/L 1,000 ML IV SCH ×2 (00:15→14:34)
[2019-08-16] MEDS: levETIRAcetam IV 750 MG in SODIUM CHLORIDE 0.9% 100 ML IVPB SCH (07:32)
--- NOTE | 2019-08-16 13:13 | CDI ---
Documentation Clarification Form Date: 08/16/2019 01:04:22 PM From: Jodee Pelletier RN, CCDS Admit Date: 08/13/2019 07:02:00 PM Patient Name: Gene Low Visit Number: [id number] Discharge Date: ATTENTION: The Clinical Documentation Specialists (CDI) and [facility] Coding Staff appreciate your assistance in clarifying documentation. Please respond to the clarification below the line at the bottom and electronically sign. The CDI & [facility] Coding staff will review the response and follow-up if needed. Please note: Queries are made part of the Legal Health Record. If you have any questions, please contact the author of this message via ITS. Dr. Stevie Quintero Failure to thrive in adult, dietary consult for malnutrition and further specificity is requested for the type and degree of malnutrition. History/Risk Factors: Generalized seizure, Ca of Pharynx, Alcoholism Clinical Indicators: 64-year-old male present to ED on 08/12 after witnessed seizure. On admission he was postictal, lethargic and unresponsive. 08/13 Nutrition assessment has noted he is underweight, with poor nutritional intake and likely weight loss 08/14 Labs: Total protein 5.9, Albumin 3.2 Current BMI: 16.2 Insufficient energy intake: Yes, current patient is NPO Weight Loss: Yes Loss of subcutaneous fat: Yes Treatment: Neurological assessment Q4 hours Aspiration monitor PO intake (when no longer NPO) Dietary Consult: Yes Lab monitoring: In your professional opinion, can you please clarify if these findings signify one of the following conditions? Mild Protein-Calorie Malnutrition Moderate Protein-Calorie Malnutrition Severe Protein-Calorie Malnutrition Other condition, please specify Unable to determine (Last Revision: September 2018) MTDD
--- NOTE | 2019-08-16 14:34 | FL ---
EXAMINATION TYPE: FL barium swallow w video DATE OF EXAM: 08/16/2019 MODIFIED SWALLOW / DEGLUTITION STUDY CLINICAL HISTORY: Dysphagia. Choking. Rule out silent aspiration. History of throat cancer and treatm ent. TECHNIQUE: Deglutition study is performed utilizing thin liquid barium, honey and nectar thick liqui d barium, barium thick applesauce, and barium coated cracker. Roughly 60 seconds of fluoroscopic time utilized. 0 spot images saved to PACS. COMPARISON: None. FINDINGS: The oral and pharyngeal phases show satisfactory initiation and propagation with all modali ties tested. Normal mastication is seen with solid modalities tested. There is no evidence of penet ration or aspiration with any modality tested. No significant pharyngeal residue was appreciated. No te is made of prominent epiglottis suspected posttreatment change related to oral cancer, correlate c linically. IMPRESSION: No penetration or aspiration observed. Please refer to speech therapist notes for furthe r details if necessary.
--- NOTE | 2019-08-16 20:20 | PN ---
PROGRESS NOTE CHIEF COMPLAINT: Seizure disorder and alcoholism. HISTORY OF PRESENT ILLNESS: This gentleman is doing fairly well. Apparently he did not do well on his swallow evaluation, and a modified barium swallow has been ordered. Otherwise he is doing well. PHYSICAL EXAMINATION: He is awake and alert. Chest is clear. Cardiac exam is normal. Abdomen is soft, nontender. IMPRESSION: 1. Grand mal seizure disorder. 2. Alcoholism. 3. History of carcinoma of the throat. 4. Chronic obstructive pulmonary disease. PLAN: 1. Modified barium swallow. 2. He will probably be able to go home sometime soon. MMODL / IJN: [id number] /
[2019-08-16] MEDS: levETIRAcetam 250 MG TAB PO SCH (20:49)
[2019-08-17] MEDS: 0.9% NACL WITH KCL 20 MEQ/L 1,000 ML IV SCH ×2 (02:41→19:23)
[2019-08-17] MEDS: levETIRAcetam 250 MG TAB PO SCH ×2 (07:42→20:26)
--- NOTE | 2019-08-17 18:37 | PN ---
PROGRESS NOTE CHIEF COMPLAINT: 1. Seizure disorder. 2. Alcoholism. HISTORY OF PRESENT ILLNESS: This gentleman is doing fairly well. We are working on discharge plan. He has had no further seizure activity. PHYSICAL EXAMINATION: His chest is clear. Cardiac exam is normal. The abdomen is soft and nontender. IMPRESSION: 1. Grand mal seizure disorder secondary to alcoholism. 2. Chronic obstructive pulmonary disease. 3. General debility. PLAN: Progress activity and continue to work on discharge planning. It may be that he is going back home to live with his brother. MMODL / IJN: [id number] /
--- NOTE | 2019-08-18 01:22 | MISC ---
MISCELLANOUS REPORT QUERY: Moderate protein-calorie malnutrition. MMODL / IJN: [id number] /
[2019-08-18] MEDS: 0.9% NACL WITH KCL 20 MEQ/L 1,000 ML IV SCH (04:40)
[2019-08-18 08:28] VITALS: RESP 16; TEMP 98.3
[2019-08-18] MEDS: levETIRAcetam 250 MG TAB PO SCH (10:17)
[2019-08-18 14:38] VITALS: BP 100/64; PULSE 90
--- NOTE | 2019-08-18 16:27 | P.PN ---
Subjective Progress Note Date: 08/18/19 Principal diagnosis: Subjective: Patient has remained clinically stable overnight. No further seizures reported. No adverse effects to Keppra IV. No acute events reported overnight. Patient remained stable clinically. Tolerating Keppra without difficulty. No further seizures reported. EEG completed.reviewed discharge plans with the patient. Patient should go home on Keppra 750 twice daily and also added vitamin D3 5000 units daily. Examination Objective - Vital Signs Vital signs: Vital Signs Temp 98.3 F 08/18/19 14:37 Pulse 90 08/18/19 14:37 Resp 16 08/18/19 14:37 BP 100/64 08/18/19 14:37 Pulse Ox 98 08/18/19 14:37 Intake & Output 08/17/19 08/18/19 08/18/19 18:59 06:59 18:59 Output Total 1000 200 Balance -1000 -200 Weight 54.4 kg Output: Urine 1000 200 Other: Voiding Method Urinal Urinal Urinal # Voids 2 1 2 - Exam examination: Neurological Mental status awake alert oriented times place person. Easily distractible. Speech is fluent. Pupils 2 mm reactive to light and accommodation. Cranial nerves: Cranial nerves III through XII are intact. Motor examination distal muscle wasting noted throughout. Moves all 4 extremities equally. Strength is 5 out of 5 throughout. Pronator drift negat elva. No fasciculations tremor noted. Coordination testing: [id number] testing is intact. Gait examination: Patient is able to stand and walk without assistance. His gait is slightly wide-based but not ataxic - Labs CBC & Chem 7: 08/15/19 07:33 08/15/19 07:33 Assessment and Plan Assessment: 64-year-old male brought in by brother for witnessed 2 minute generalized tonic- clonic seizure with prolonged postictal state. this patient has not had any further seizure activity since being on Keppra initially IV now by mouth for over 24 hours. The patient did admit to me today that he was a heavy drinker for many years and he believes that each time he's had a seizure is when he drinks. This information was withheld on admission. I counseled the patient on seizure triggers and the importance of abstaining from alcohol. We also discussed his throat cancer history and need to follow up carefully with his primary care doctor in the event there is recurrence. Examination today is essentially nonfocal. The patient may be discharged home/cleared by neurology. He should follow up with an outpatient neurologist for his seizure disorder and his general primary care doctor. This patient has significant nutritional concerns which can be addressed further on an outpatient basis. Summary 1. Generalized tonic-clonic seizure with postictal state. 2. Adult failure to thrive / history of alcohol abuse, throat cancer status post chemo 3. Long-standing nicotine abuse. 4. Progressive weight loss with fatigue over the last year, history of throat cancer status post chemo 5. Seizure workup includes negative MRI of the brain for any intracranial pathology. Negative MRA for any intracranial or extracranial pathology. Normal wake sleep EEG Recommendations: 1. This patient may be discharged home with seizure medication of 750 mg Keppra twice daily and vitamin D3 5000 mg daily. 2. Patient has been instructed to reach out to his primary care physician within the next week and arrange for outpatient follow-up with neurology. 3. Patient has been counseled on abstinence from alcohol and cigarettes and educated to what her potential triggers for lowering seizure threshold. Thank you for this consultation. Teresa Huber MD Board Certified in Neurology & Sleep Medicine
--- NOTE | 2019-08-18 23:15 | DS ---
DISCHARGE SUMMARY CHIEF COMPLAINT: Seizure. HISTORY OF PRESENT ILLNESS AND PHYSICAL EXAMINATION: Details of this man's history and physical can be found in the initial workup. LABORATORY STUDIES: While he was in the hospital he had laboratory studies, details of which can be found in the laboratory section of his chart. COURSE IN THE HOSPITAL: After admission he was placed on bedrest and placed on seizure precautions. While in the hospital he did well. It was felt that he had mild postictal depression. He steadily improved. He was seen by Neurology. He confided the fact that he had been drinking alcohol when this seizure started and he had been an alcoholic in the past. As he improved, it was felt he could be discharged, and he will go home on August 17. He will go home on Keppra prescribed by Neurology. It is not likely this patient will take this and his seizure was related to his alcohol. He will be seen in several days. He is a brother of a patient of mine. FINAL DIAGNOSES: 1. Grand mal seizure disorder secondary to alcohol withdrawal. 2. Alcoholism. 3. Chronic obstructive pulmonary disease. 4. General debility. OPERATIONS: None. CONSULTATION: Neurology. He is improved. MMODL / IJN: [id number] /
== END 2019-08-18 16:27 | disposition home health service (06) | DRG 896 ==
LOC: EC 16:10 → 4SSUR 19:02
PROVIDERS: ADMIT Family Medicine; ATTEND Family Medicine
DX: F10.239 Alcohol dependence with withdrawal, unspecified (principal); R40.2343 Coma scale, best motor response, flexion withdrawal, at hospital admission; E44.0 Moderate protein-calorie malnutrition; Z68.1 Body mass index [BMI] 19.9 or less, adult; G40.409 Other generalized epilepsy and epileptic syndromes, not intractable, without status epilepticus; R40.2143 Coma scale, eyes open, spontaneous, at hospital admission; R40.2233 Coma scale, best verbal response, inappropriate words, at hospital admission; F32.9 Major depressive disorder, single episode, unspecified; I10 Essential (primary) hypertension; J44.9 Chronic obstructive pulmonary disease, unspecified; R62.7 Adult failure to thrive; R53.81 Other malaise; Z11.59 Encounter for screening for other viral diseases; Z85.819 Personal history of malignant neoplasm of unspecified site of lip, oral cavity, and pharynx; Z92.21 Personal history of antineoplastic chemotherapy; Z91.81 History of falling; Z91.19 Patient's noncompliance with other medical treatment and regimen; Z87.891 Personal history of nicotine dependence; Z87.828 Personal history of other (healed) physical injury and trauma
CPT/HCPCS: 36415; 70450; 70544; 70547; 70551; 71045; 74230; 80053; 80061; 80306; 80320; 81001; 83036; 83735; 85025; 87635; 93005; 95816; 96361; 96365; 96368; 96375; 99285

== ENCOUNTER 2019-10-23 08:52 | Inpatient (IN) | payer OTHER ==
[2019-10-23] MEDS ORDERED: SODIUM CHLORIDE 0.9% 1,000 ML IV ONE (09:34)
--- NOTE | 2019-10-23 09:41 | ED ---
General Adult HPI - General Chief complaint: Seizure Stated complaint: Seizures Time Seen by Provider: 10/23/19 09:00 Source: patient, EMS, RN notes reviewed, old records reviewed Mode of arrival: EMS Limitations: altered mental status - History of Present Illness Initial comments: This is a 64-year-old male with a past medical history significant for seizures and it is believed alcohol abuse. According to EMS there were alcohol bottles in the room and the patient's roommate called because the patient had been seizing 3-5 minutes. It appears that the patient has not recently filled his Keppra prescription. Patient is unable to give any further history no one came with the patient give any further history. - Related Data Home Medications Medication Instructions Recorded Confirmed Cholecalciferol [Vitamin D3 (25 5,000 unit PO DAILY 10/23/19 10/23/19 Mcg = 1000 Iu)] levETIRAcetam [Keppra] 750 mg PO BID 10/23/19 10/23/19 Allergies Allergy/AdvReac Type Severity Reaction Status Date / Time No Known Allergies Allergy Verified 10/23/19 09:15 Review of Systems ROS Statement: Those systems with pertinent positive or pertinent negative responses have been documented in the HPI. ROS Other: All systems not noted in ROS Statement are negative. Past Medical History Past Medical History: Unable to Obtain Additional Past Medical History / Comment(s): UNKNOWN History of Any Multi-Drug Resistant Organisms: None Reported Past Surgical History: Orthopedic Surgery Additional Past Surgical History / Comment(s): Left arm ortho surgery Past Psychological History: Unable to Obtain Smoking Status: Unknown if ever smoked Past Alcohol Use History: None Reported Past Drug Use History: Marijuana General Exam - General Exam Comments Initial Comments: GENERAL: Patient is well-developed and well-nourished. Patient is nontoxic and well- hydrated and is in mild distress. ENT: Neck is soft and supple. No significant lymphadenopathy is noted. Oropharynx is clear. Moist mucous membranes. Neck has full range of motion without eliciting any pain. EYES: The sclera were anicteric and conjunctiva were pink and moist. Extraocular movements were intact and pupils were equal round and reactive to light. Eyelids were unremarkable. PULMONARY: Unlabored respirations. Good breath sounds bilaterally. No audible rales rhonchi or wheezing was noted. CARDIOVASCULAR: There is a regular rate and rhythm without any murmurs gallops or rubs. ABDOMEN: Soft and nontender with normal bowel sounds. No palpable organomegaly was noted. There is no palpable pulsatile mass. SKIN: Skin is clear with no lesions or rashes and otherwise unremarkable. NEUROLOGIC: Patient is post ictal MUSCULOSKELETAL: Normal extremities with adequate strength and full range of motion. No lower extremity swelling or edema. No calf tenderness. LYMPHATICS: No significant lymphadenopathy is noted PSYCHIATRIC: Unable to evaluate Limitations: altered mental status Course Vital Signs 10/23/19 10/23/19 10/23/19 09:00 09:16 10:11 Temperature 98.5 F 98.6 F Pulse Rate 125 H 64 101 H Respiratory 20 20 22 Rate Blood Pressure 103/66 103/66 103/66 O2 Sat by Pulse 96 98 98 Oximetry Medical Decision Making - Medical Decision Making EKG shows sinus tachycardia 170 bpm CA interval 230 QRS is 70 QT interval is 338 QTC is 471 per patient's EKG shows no ST segment elevation or depression however there are T-wave inversions in leads V5 and V6. CT of the brain showed no acute abnormality. Chest x-ray showed no acute abnormality. Patient had a seizure at home prior initially I thought he was postictal however he never came back to his baseline WHEN I ordered a CAT scan which was negative. At this point the patient is still altered and is not answering questions is awake but does not appear to be oriented at all. I spoke with Dr. LARIOS agreed to admit the patient admitted the patient wrote admitting orders. - Lab Data Result diagrams: 10/23/19 09:36 10/23/19 09:36 Lab Results 10/23/19 10/23/19 Range/Units 09:36 09:36 WBC 17.1 H (3.8-10.6) k/uL RBC 4.32 (4.30-5.90) m/uL Hgb 13.0 (13.0-17.5) gm/dL Hct 40.6 (39.0-53.0) % MCV 93.8 (80.0-100.0) fL MCH 30.0 (25.0-35.0) pg MCHC 31.9 (31.0-37.0) g/dL RDW 13.9 (11.5-15.5) % Plt Count 232 (150-450) k/uL Neutrophils % 91 % Lymphocytes % 3 % Monocytes % 5 % Eosinophils % 0 % Basophils % 0 % Neutrophils # 15.6 H (1.3-7.7) k/uL Lymphocytes # 0.6 L (1.0-4.8) k/uL Monocytes # 0.8 (0-1.0) k/uL Eosinophils # 0.0 (0-0.7) k/uL Basophils # 0.0 (0-0.2) k/uL Sodium 139 (137-145) mmol/L Potassium 4.3 (3.5-5.1) mmol/L Chloride 101 (98-107) mmol/L Carbon Dioxide 26 (22-30) mmol/L Anion Gap 12 mmol/L BUN 13 (9-20) mg/dL Creatinine 0.71 (0.66-1.25) mg/dL Est GFR (CKD-EPI)AfAm >90 (>60 ml/min/1.73 sqM) Est GFR (CKD-EPI)NonAf >90 (>60 ml/min/1.73 sqM) Glucose 111 H (74-99) mg/dL Calcium 9.1 (8.4-10.2) mg/dL Magnesium 2.1 (1.6-2.3) mg/dL Total Bilirubin 0.8 (0.2-1.3) mg/dL AST 34 (17-59) U/L ALT 13 (4-49) U/L Alkaline Phosphatase 64 (38-126) U/L Total Protein 7.4 (6.3-8.2) g/dL Albumin 4.6 (3.5-5.0) g/dL Serum Alcohol <10 mg/dL Disposition Clinical Impression: Generalized seizure, Altered mental status Disposition: ADMITTED IP TO THIS HOSP Referrals: None,Stated [Primary Care Provider] - 1-2 days Time of Disposition: 12:28
[2019-10-23] MEDS ORDERED: levETIRAcetam IV 1,000 MG in SALINE 1 100ML.BAG IVPB STA (09:46)
[2019-10-23 09:49] LABS: Basophils % (A) 0 %; Eosinophils % (A) 0 %; HCT 40.6 % (39.0-53.0); Lymphocytes # (A) 0.6 k/uL (1.0-4.8); Lymphocytes % (A) 3 %; MCHC 31.9 g/dL (31.0-37.0); MCV 93.8 fL (80.0-100.0); Mean Platelet Volume 8.1; Monocytes # (A) 0.8 k/uL (0-1.0); Monocytes % (A) 5 %; Neutrophils # (A) 15.6 k/uL (1.3-7.7); Neutrophils % (A) 91 %; Platelet Count 232 k/uL (150-450); RBC 4.32 m/uL (4.30-5.90); RDW 13.9 % (11.5-15.5); WBC 17.1 k/uL (3.8-10.6)
[2019-10-23 10:05] LABS: ALT 13 U/L (4-49); African American GFR (CKD) >90 (>60 ml/min/1.73 sqM); Albumin 4.6 g/dL (3.5-5.0); Alcohol <10 mg/dL; Anion Gap 12 mmol/L; Blood Urea Nitrogen 13 mg/dL (9-20); Calcium 9.1 mg/dL (8.4-10.2); Carbon Dioxide 26 mmol/L (22-30); Chloride 101 mmol/L (98-107); Glucose 111 mg/dL (74-99); Non-African American GFR(CKD) >90 (>60 ml/min/1.73 sqM); Sodium 139 mmol/L (137-145); Total Bilirubin 0.8 mg/dL (0.2-1.3); Total Protein 7.4 g/dL (6.3-8.2)
[2019-10-23 10:14] LABS: Magnesium 2.1 mg/dL (1.6-2.3); Potassium 4.3 mmol/L (3.5-5.1)
[2019-10-23 10:15] LABS: AST 34 U/L (17-59); Alkaline Phosphatase 64 U/L (38-126)
--- NOTE | 2019-10-23 11:05 | CT ---
EXAMINATION TYPE: CT brain wo con DATE OF EXAM: 10/23/2019 COMPARISON: 08/13/2019 HISTORY: Patient appears confused CT DLP: 1429.[address] of the brain was performed. The ventricles, basal cisterns and sulci overlying the cerebral convexities demonstrate mild enlargem ent. There is no evidence for intracranial hemorrhage or sulcal effacement. There is decreased attenuation about the periventricular white matter and deep white matter of both c erebral hemispheres, compatible with chronic small vessel ischemia. Differential diagnosis does inclu de demyelination. No mass effects are seen.No midline shift. Osseous calvarium is intact. If symptoms persist consider MRI. IMPRESSION: 1. Age related atrophic and chronic small vessel ischemic change without acute intracranial process s een at this time.
--- NOTE | 2019-10-23 12:13 | XR ---
EXAMINATION TYPE: XR chest 2V DATE OF EXAM: 10/23/2019 COMPARISON: 08/13/2019 TECHNIQUE: PA and lateral views submitted. HISTORY: Difficulty breathing FINDINGS: The lungs are clear and there is no pneumothorax, pleural effusion, or focal pneumonia. There is hy perinflation. Coarsened interstitium noted. Hypertrophic and degenerative change of the spine. Athero sclerotic change aorta. Heart size normal. Biapical pleural thickening. IMPRESSION: 1. COPD correlate for bronchitis. Underlying interstitial pneumonitis not excluded. Correlate clinica lly.
[2019-10-23] MEDS ORDERED: SODIUM CHLORIDE 0.9% 1,000 ML IV STA (12:23)
[2019-10-23] MEDS ORDERED: SODIUM CHLORIDE 0.9% 1,000 ML with MVI, ADULT NO.4 WITH VIT K 10 ML, THIAMINE 100 MG, F... IV ONE ×4 (12:30)
[2019-10-23 13:13] LABS: Appearance,Urine Clear (Clear); Bilirubin,Urine Negative (Negative); Blood,Urine Negative (Negative); Color,Urine Yellow; Glucose,Urine (UA) Negative (Negative); Ketones,Urine 2+ (Negative); Leukocyte Esterase,Urine Negative (Negative); Mucus,Urine Rare /hpf; Nitrite,Urine Negative (Negative); PH, Urine 6.5 (5.0-8.0); Protein,Urine 1+ (Negative); RBC,Urine 1 /hpf (0-5); Specific Gravity,Urine 1.021 (1.001-1.035); Squamous Epithelial Cell,Urine <1 /hpf (0-4); Urobilinogen,Urine <2.0 mg/dL (<2.0); WBC,Urine 1 /hpf (0-5)
[2019-10-23] MEDS ORDERED: HYDROmorphone 0.5 MG/0.5 ML SYRINGE IVP PRN (14:20)
[2019-10-23] MEDS ORDERED: HYDROcodone/APAP 5-325MG 1 EACH TAB PO PRN (14:20)
[2019-10-23] MEDS ORDERED: IPRATROPIUM-ALBUTEROL 3 ML NEB INHALATION PRN (14:21)
[2019-10-23] MEDS ORDERED: LORazepam 2 MG/ML INJ IV PRN ×3 (15:12)
[2019-10-23] MEDS: PIPERACILLIN-TAZOBACTAM 3.375 GM in SODIUM CHLORIDE 0.9% 100 ML IVPB SCH ×2 (15:13→23:21)
[2019-10-23] MEDS: SODIUM CHLORIDE 0.9% 1,000 ML with MVI, ADULT NO.4 WITH VIT K 10 ML, THIAMINE 100 MG, F... IV SCH ×4 (15:13)
--- NOTE | 2019-10-23 15:44 | HP ---
HISTORY AND PHYSICAL CHIEF COMPLAINT: Change in mental status. HISTORY OF PRESENT ILLNESS: This 64-year-old gentleman with a past medical history of multiple medical problems, including history of possible seizure disorder, history of ETOH, history of COPD, not being followed by a primary physician in the outpatient setting, was apparently living with a roommate and apparently EMS was called because of a seizure lasting for 3-5 minutes. Postictally the patient was confused. The patient was admitted for further evaluation treatment. White count is elevated at 17.1. UA did not show acute abnormality. The patient also had a chest x-ray and brain CT, which were reviewed personally by me. The CT scan of the brain showed age-related atrophic changes and small-vessel ischemic changes without any acute intracranial process. Chest x- ray showed COPD and bronchitis; underlying interstitial pneumonitis is not being completely excluded. The EKG showed sinus tachycardia and ST-T changes. A detailed history cannot be taken from the patient at this time. The patient is confused and disoriented and slightly restless at this time. PAST MEDICAL HISTORY: History of seizure disorder, ETOH, COPD. HOME MEDICATIONS: Vitamin D3 and Keppra 750 p.o. b.i.d. ALLERGIES: NONE. Family history, social history and review of systems could not be taken because of the above-mentioned reasons and change in mental status. He has a history of THC per chart, history of alcohol per previous chart. PHYSICAL EXAMINATION: Patient is confused, disoriented. Pulse 45, blood pressure 97/50, respiration 17, temperature 98.4, pulse ox 94% on 2 L. HEENT: Conjunctivae normal. Oral mucosa moist. NECK: No jugular venous distention. No carotid bruit. No lymph node enlargement. CARDIOVASCULAR SYSTEM: S1, S2 muffled. RESPIRATORY SYSTEM: Breath sounds diminished at the bases. A few scattered rhonchi and crackles. ABDOMEN: Soft, non-tender. No mass palpable. LEGS: No edema. No swelling. NERVOUS SYSTEM: Extremely emaciated and extremely weak. Unable to cope with the full exam. Moves all 4 limbs apparently. SKIN: No ulcer, rash, bleeding. JOINTS: No active deforming arthropathy. LYMPHATICS: No lymph node palpable in neck, axillae or groin. LABS: WBC 17.1, hemoglobin 13, sodium 139, potassium 4.3. ASSESSMENT: 1. Change in mental status, acute metabolic encephalopathy, multifactorial possibly. 2. Possible acute seizure disorder, grand mal, tonic-clonic. 3. Possible acute purulent tracheobronchitis. 4. Possible acute delirium tremens. 5. Chronic small-vessel ischemic changes on the CT scan of the brain. 6. 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 7. Severe protein-calorie malnutrition with a body mass index of 17.9. 8. Increased white count. 9. History of chronic obstructive pulmonary disease. 10.History of tetrahydrocannabinol. RECOMMENDATIONS AND DISCUSSION: In this 64-year-old gentleman who presented with multiple complex medical issues, we will monitor the patient closely, continue the current medications, continue symptomatic treatment. Will obtain neurology consultation, EEG. Resume the home medications. The patient has ordered Keppra. Otherwise, social media marketing manager evaluation, PT/OT evaluation. The overall prognosis is extremely guarded because of multiple complex medical issues. I would also recommend empiric antibiotics. We will continue to monitor. A CT scan of the chest also may be ordered later once the patient is more coherent. The repeat chest x-ray still shows the abnormalities. Otherwise I would also recommend the patient follow up with a primary physician closely after discharge. MMODL / IJN: [id number] / MTDHira
[2019-10-23] MEDS ORDERED: SODIUM CHLORIDE 0.9% 500 ML 500 ML IV ONE (17:42)
--- NOTE | 2019-10-23 18:27 | P.CNNES ---
History of Present Illness Consult date: 10/23/19 Requesting physician: Jarret Blanchard Reason for Consult: seizure History of Present Illness: This is a 64 y/o gentleman with medical history of seizure who is not compliant with medication, hx of EOH use, oral cancer COPD who presented to the emergency department on 10/23/2019 for seizure. History was obtained from the brother Jarred, who the patient resides with. Today patient was found on his stomach with his head turned to the side and had shaking of all extremities lasting for 3-5 minutes. After the episode possibly the patient had urinary incontinence. No foaming around the mounth. Not sure if eyes were rolled back or what direction there were in. Postictally the patient was confused. Patient has n ot been taking his medication for the past couple days and has not followed-up with any his physicians. Brother doesn't know what medication patient is on but per medical documentation its Keppra 750 mg twice a day. Patient brother stated that patient had a seizure that started either winter or 2018 and had possibly three seizures in total. He has not been drinking recently. He does have history of alcohol use in past but stopped and had relapsed for one day, that was couple months ago and has not drank again. He continues to smoke cigarettes 1/2 pack per day. Patient baseline is he able to walk without any difficulty and has normal conversation. CT of the brain shows age-related atrophic and chronic small vessel ischemic changes without acute intracranial process seen at this time. On presentation his blood pressure was 97/50 and heart rate was 45 and a temperature was 98.4 orally. White blood cell at presentation was 17.1, UA was normal. Chest x-ray showed COPD and bronchitis underlying interstitial pneumonitis is not being completely excluded. EKG shows sinus tachycardia, with ventricular rate of 117. Right atrial enlargement. Anterolateral infarct age undetermined. Serum glucose was 111. Alcohol level was less than 10. Patient received 1gm of IV keppra in ED. Review of Systems Review of system: The 12 point system was reviewed and apparent positive and negative per HPI. Past Medical History Past Medical History: Unable to Obtain, Cancer, Seizure Disorder Additional Past Medical History / Comment(s): throat cancer per brother. all inez th removed. History of Any Multi-Drug Resistant Organisms: None Reported Past Surgical History: Orthopedic Surgery Additional Past Surgical History / Comment(s): Left arm ortho surgery Past Psychological History: Unable to Obtain Smoking Status: Unknown if ever smoked Past Alcohol Use History: Heavy Past Drug Use History: Marijuana Additional Drug Use History / Comment(s): does not drink alcohol anymore per brother. Medications and Allergies Home Medications Medication Instructions Recorded Confirmed Type Cholecalciferol [Vitamin D3 (25 5,000 unit PO DAILY 10/23/19 10/23/19 History Mcg = 1000 Iu)] levETIRAcetam [Keppra] 750 mg PO BID 10/23/19 10/23/19 History Allergies Allergy/AdvReac Type Severity Reaction Status Date / Time No Known Allergies Allergy Verified 10/23/19 09:15 Physical Examination - Vital Signs Vital Signs: Vital Signs Temp Pulse Pulse Resp BP BP Pulse Ox 10/23/19 16:58 96/49 10/23/19 16:53 83 10/23/19 13:59 98.4 F 45 L 17 97/50 94 L 10/23/19 12:51 102/70 10/23/19 12:46 98.6 F 88 20 95/64 97 10/23/19 10:11 101 H 22 103/66 98 10/23/19 09:16 98.6 F 64 20 103/66 98 10/23/19 09:00 98.5 F 125 H 20 103/66 96 Intake and Output 10/23/19 10/23/19 10/23/19 06:59 14:59 22:59 Other: Weight 56.699 kg GENERAL: The patient is lying in bed and and seems in distress. He looks cachectic. CHEST: The heart rate is regular rate rhythm. No murmurs to auscultation. LUNG:Not labored breathing. ABDOMEN/GI: Bowel sounds present in all 4 quadrants. NEUROLOGICAL: Limited because of patient cooperation. Higher mental function: The patient is drowsy but is awakeable. Oriented to self and time. Patient is following simple commands. No aphasia Cranial nerves: The pupils are round, equal and reactive to light and accommodation. Extraocular movement is intact no nystagmus is noted. No facial weakness noted. Tongue is midline and moved [id number] without any difficulty. No dysarthria is noted. Motor: The strength is antigravity throughout. Normal tone and bulk. Cerebellum: Unable to assess. Sensation: Sensation is normal to touch throughout. Reflexes (right/left): Unable to assess. Plantars are downgoing bilaterally. Results AST of 34 ALTs of 13 all call phospholipid of 64 albumin of 4.6. - Laboratory Findings CBC and BMP: 10/23/19 09:36 10/23/19 09:36 Abnormal Lab Findings: Abnormal Labs 10/23/19 10/23/19 10/23/19 09:36 09:36 12:42 WBC 17.1 H Neutrophils # 15.6 H Lymphocytes # 0.6 L Glucose 111 H Urine Protein 1+ H Urine Ketones 2+ H Urine Mucus Rare H Assessment and Plan Assessment: This is a 64 y/o gentleman with medical history of seizure who is not compliant with medication, hx of EOH use, oral cancer COPD who presented to the emergency department on 10/23/2019 for seizure. Today patient had a seizure lasting for 3-5 minutes. After the episode possibly the patient had urinary incontinence. Postictally the patient was confused. Patient has not been taking his medication for the past couple days and has not followed-up with any his physicians. Possibly he is on Keppra 750 mg twice a day. Had previous seizure episode either due to drinking or medication non-compliance. He was given Keppra 1gm in ED. Upon seeing the patient his condition seems to be improving. [id number] with medication Oral cancer Possible acute purulent tracheobronchitis. Tobacco use Hx Alcohol abuse. Plan: Will restart patient on Keppra 750mg bid. If patient mentation is not back to baseline we will order routine EEG Patient is currently on thiamine 100 mg daily. Recommend placing on Vitamin B12. Regarding patient abdominal pain, possible tracheobronchitis we will defer to primary team. Thanks for the consult, Inderjit Butterfield MD Neuro-hospitalist
[2019-10-23] MEDS: SYMBICORT 160-4.5 MCG INHALER INHALATION SCH (20:19)
[2019-10-23] MEDS: IPRATROPIUM-ALBUTEROL 3 ML NEB INHALATION SCH (20:19)
[2019-10-23] MEDS: HEPARIN SODIUM,PORCINE 5,000 UNIT/ML 1 ML VIAL SQ SCH (21:32)
[2019-10-23] MEDS: levETIRAcetam IV 750 MG in SODIUM CHLORIDE 0.9% 100 ML IVPB SCH (21:32)
[2019-10-24] MEDS: SODIUM CHLORIDE 0.9% 1,000 ML with MVI, ADULT NO.4 WITH VIT K 10 ML, THIAMINE 100 MG, F... IV SCH ×12 (05:23→21:32)
[2019-10-24 07:19] LABS: Glucose,Whole Blood 70 mg/dL (75-99)
[2019-10-24 07:30] LABS: Basophils % (A) 0 %; Eosinophils % (A) 0 %; HCT 37.4 % (39.0-53.0); HGB 11.8 gm/dL (13.0-17.5); Lymphocytes # (A) 0.6 k/uL (1.0-4.8); Lymphocytes % (A) 5 %; MCHC 31.5 g/dL (31.0-37.0); MCV 95.3 fL (80.0-100.0); Mean Platelet Volume 7.8; Monocytes # (A) 0.5 k/uL (0-1.0); Monocytes % (A) 4 %; Neutrophils # (A) 10.3 k/uL (1.3-7.7); Neutrophils % (A) 90 %; Platelet Count 179 k/uL (150-450); RBC 3.92 m/uL (4.30-5.90); RDW 14.1 % (11.5-15.5); WBC 11.5 k/uL (3.8-10.6)
[2019-10-24] MEDS: IPRATROPIUM-ALBUTEROL 3 ML NEB INHALATION SCH ×3 (07:35→19:04)
[2019-10-24] MEDS: SYMBICORT 160-4.5 MCG INHALER INHALATION SCH ×2 (07:37→19:04)
[2019-10-24 07:48] LABS: African American GFR (CKD) >90 (>60 ml/min/1.73 sqM); Anion Gap 6 mmol/L; Blood Urea Nitrogen 17 mg/dL (9-20); Calcium 7.9 mg/dL (8.4-10.2); Carbon Dioxide 24 mmol/L (22-30); Chloride 109 mmol/L (98-107); Glucose 67 mg/dL (74-99); Non-African American GFR(CKD) >90 (>60 ml/min/1.73 sqM); Potassium 3.9 mmol/L (3.5-5.1); Sodium 139 mmol/L (137-145)
[2019-10-24 08:30] LABS: Glucose,Whole Blood 91 mg/dL (75-99)
[2019-10-24] MEDS: CHOLECALCIFEROL 1,000 UNIT TAB PO SCH (08:34)
[2019-10-24] MEDS: levETIRAcetam IV 750 MG in SODIUM CHLORIDE 0.9% 100 ML IVPB SCH (08:34)
[2019-10-24] MEDS: PANTOPRAZOLE 40 MG/10 ML VIAL IVP SCH (08:35)
[2019-10-24] MEDS: HEPARIN SODIUM,PORCINE 5,000 UNIT/ML 1 ML VIAL SQ SCH ×2 (08:35→21:32)
[2019-10-24] MEDS ORDERED: CYANOCOBALAMIN 1,000 MCG/ML 1 ML VIAL IM SCH (09:00)
[2019-10-24] MEDS: PIPERACILLIN-TAZOBACTAM 3.375 GM in SODIUM CHLORIDE 0.9% 100 ML IVPB SCH ×2 (09:29→16:20)
--- NOTE | 2019-10-24 09:35 | XR ---
EXAMINATION TYPE: XR chest 1V portable DATE OF EXAM: 10/24/2019 CLINICAL HISTORY: Pneumonia TECHNIQUE: Portable upright view of the chest obtained COMPARISON: 10/23/2019 and 08/13/2019 chest radiograph FINDINGS: The lungs are hyperexpanded. The cardiomediastinal silhouette is within normal limits for size. Pulmonary vasculature is normal. Biapical pleural thickening. Coarsened interstitium asymmetric ally on the left redemonstrated from 10/23/2019, new from 08/13/2019. There is no pleural effusion or pn eumothorax seen. The osseous structures are intact. IMPRESSION: 1. Asymmetric interstitial coarsening of the left lung redemonstrated from 10/23/2019, new from 08/13/19 20. Findings may represent interstitial pneumonitis. 2. Emphysematous changes.
[2019-10-24 12:50] VITALS: BMI 17.9
[2019-10-24] MEDS ORDERED: SODIUM CHLORIDE 0.9% 500 ML 500 ML IV ONE (15:28)
[2019-10-24] MEDS: IOPAMIDOL CONTRAST (ORAL USE) VIAL PO PRN ×2 (15:54→17:03)
--- NOTE | 2019-10-24 17:31 | PN ---
PROGRESS NOTE DATE OF SERVICE: 10/24/2019 This 64-year-old gentleman admitted with change in mental status and metabolic encephalopathy also had possibly grand mal seizures. The patient also has a history of significant alcohol intake. The patient also had small vessel ischemia on the CT scan of the brain. The chest x-ray was reported as showing asymmetric interstitial coarsening of the left lung, possibly interstitial pneumonitis. Emphysematous changes were also noted. The patient is being closely monitored at this time. Sensorium is slightly improved. Still the patient continues to be confused. Multiple consultants are following the patient closely, including Neurology. Past medical history reviewed. REVIEW OF SYSTEMS: CARDIOVASCULAR SYSTEM: No angina, palpitations. RESPIRATORY SYSTEM: As mentioned earlier. GI: As mentioned earlier. : No dysuria or retention. NERVOUS SYSTEM: No numbness, weakness. CURRENT MEDICATIONS: Reviewed. They include: 1. Hope. 2. DuoNeb q.i.d. 3. Symbicort. 4. Vitamin B2. 5. Heparin. 6. Dilaudid. 8. Keppra. 9. Ativan. 10.Protonix. 11.Zosyn 3.375 IV. PHYSICAL EXAMINATION: Patient is alert and oriented x3. Pulse is 70, blood pressure 96/60, respiration 18, temperature 98.2, pulse ox 93% on room air. HEENT: Conjunctivae normal. NECK: No jugular venous distention. CARDIOVASCULAR SYSTEM: S1, S2 muffled. RESPIRATORY SYSTEM: Breath sounds diminished at the bases. A few scattered rhonchi and crackles. ABDOMEN: Soft, non-tender. LEGS: No edema. No swelling. NERVOUS SYSTEM: Diffusely weak. LABS: WBC 11.5, hemoglobin 11.8 and calcium is 7.9. ASSESSMENT: 1. Change in mental status, acute metabolic encephalopathy, multifactorial. 2. Acute seizure disorder, grand mal, tonic-clonic. 3. Possible bilateral interstitial pneumonia or acute purulent tracheobronchitis. 4. Possible acute delirium tremens. 5. Chronic small-vessel ischemic changes on the CT scan of the brain. 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 7. Severe protein-calorie malnutrition with a body mass index of 17.9. 8. 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 9. Increased white count. 10.History of chronic obstructive pulmonary disease. 11.History of tetrahydrocannabinol. 12.Anemia, normocytic anemia of chronic disease. RECOMMENDATIONS AND DISCUSSION: In this 64-year-old gentleman who presented with multiple complex medical issues, we will monitor the patient closely, continue the current medications, continue with symptomatic treatment. Will add antibiotics to the current regimen. I would also recommend a CT scan of the chest, abdomen and pelvis for further evaluation. I would also recommend COVID-19 testing as well as consultation with Dr. Santana regarding the possible interstitial pneumonia and the pulmonary situation. Otherwise, PT/OT evaluation, dietary consultation. The patient will require ECF rehab at this time because of the multiple complex medical issues which are life-threatening, as mentioned above. Further recommendations to follow. MMODL / IJN: [id number] / MTDD
--- NOTE | 2019-10-24 17:47 | CT ---
EXAMINATION TYPE: CT ChestAbdPelvis wo con DATE OF EXAM: 10/24/2019 COMPARISON: May 22, 2019 HISTORY: Weight loss CT DLP: 421.2 mGycm Automated exposure control for dose reduction was used. Images were obtained from the thoracic inlet to the floor the pelvis with no contrast. There is oral contrast. There is some mild bullous emphysema. There is 3 x 2 cm cavitating infiltrate in the lateral aspect r ight upper lobe. Thoracic aorta is atheromatous. There is some coarse interstitial infiltrate in the posterior segment of the left upper lobe. There is bilateral pleural thickening at the posterior lung dupree. Heart size is normal. There is no pericardial effusion. There are no hilar masses. There is no evidence of mediastinal adenopathy. Liver shows no focal defect. Gallbladder appears normal. Spleen is intact. Stomach is intact. There i s no adrenal mass. Kidneys have normal size. There is no hydronephrosis. Ureters are not dilated. Reinier dder distends smoothly. There is small amount of free fluid in the pelvis. Urinary bladder wall appea rs thickened. There is no inguinal hernia. Abdominal aorta is atheromatous. I see no evidence of a bowel obstruction. There is no sign of mesent estrellita edema. There is no evidence of free air. There is tiny amount of fluid in the right paracolic gu tter. Lumbar vertebra have normal alignment. There is narrowing of L4-5 disc with spurring. Thoracic spine is intact. There is no compression fracture. The sternum is intact. The bony pelvis appears intact. H ip joints are intact. Shoulder joints are intact. I see no focal bone destruction. IMPRESSION: There is cavitating infiltrate lateral aspect right upper lobe unchanged. There is new interstitial i nfiltrate in the posterior segment left upper lobe compared to old exam. There is irregular pleural t hickening and fluid and infiltrate at the posterior lung bases that is mostly new compared to old exa m. Mild amount of free fluid in the right paracolic gutter and in the pelvis is increased compared to ol d exam. Urinary bladder wall thickening is the same or increased compared to old exam and consistent with non specific cystitis.
--- NOTE | 2019-10-24 19:16 | P.PN ---
Subjective Progress Note Date: 10/24/19 Principal diagnosis: Seizure Patient was seen at bedside and he was doing well he was wide awake and responding to question. He did acknowledge that he was not taking his Keppra the last couple days. He does not recall the episode happened that brought him to the hospital. He feels he is back to baseline. He does verify that he does not drink all call. Objective - Vital Signs Vital signs: Vital Signs Temp 98.6 F 10/24/19 15:00 Pulse 78 10/24/19 19:05 Resp 18 10/24/19 15:00 BP 125/68 10/24/19 16:32 Pulse Ox 95 10/24/19 15:00 Intake & Output 10/24/19 10/24/19 10/25/19 06:59 18:59 06:59 Output Total 400 950 Balance -400 -950 Weight 56.699 kg Output: Urine 400 950 Uretheral (Bella) 600 Other: Voiding Method Indwelling Catheter # Voids 2 0 - Exam GENERAL: The patient is lying in bed and is not in acute distress. Patient is cachectic CHEST: The heart rate is regular rate rhythm. No murmurs to auscultation. LUNG: Clear to auscultation bilaterally no wheezing noted throughout. Not la bored breathing. ABDOMEN/GI: No [place] l tenderness upon palpation. NEUROLOGICAL: Higher mental function: The patient is awake, alert, oriented to self, place and time. Patient is following commands. No aphasia and no neglect. Cranial nerves: The pupils are round, equal and reactive to light and accommodation. Visual dupree are full to confrontation throughout. Extraocular movement is intact no nystagmus is noted. Facial sensation is normal to touch throughout. The facial strength is normal throughout. Hearing is normal bilaterally to hand rub. Tongue is midline and moved [id number] without any difficulty. No dysarthria is noted. Shoulder shrug is normal bilaterally. Motor: The strength is 5 over 5 throughout. Normal tone and bulk. Cerebellum: Normal finger to nose heel to chin bilaterally. Sensation: Sensation is normal to touch throughout. Reflexes (right/left):2+ tjhroughout. Plantars are downgoing bilaterally. - Labs CBC & Chem 7: 10/24/19 06:55 10/24/19 06:55 Labs: Abnormal Lab Results - Last 24 Hours (Table) 10/24/19 10/24/19 10/24/19 Range/Units 06:55 06:55 07:15 WBC 11.5 H (3.8-10.6) k/uL RBC 3.92 L (4.30-5.90) m/uL Hgb 11.8 L (13.0-17.5) gm/dL Hct 37.4 L (39.0-53.0) % Neutrophils # 10.3 H (1.3-7.7) k/uL Lymphocytes # 0.6 L (1.0-4.8) k/uL Chloride 109 H (98-107) mmol/L Glucose 67 L (74-99) mg/dL POC Glucose (mg/dL) 70 L (75-99) mg/dL Calcium 7.9 L (8.4-10.2) mg/dL Assessment and Plan Assessment: This is a 64 y/o gentleman with medical history of seizure who is not compliant with medication, hx of EOH use, oral cancer COPD who presented to the emergency department on 10/23/2019 for seizure. Today patient had a seizure lasting for 3-5 minutes. After the episode possibly the patient had urinary incontinence. Postictally the patient was confused. Patient has not been taking his medication for the past couple days and has not followed-up with any his physicians. Possibly he is on Keppra 750 mg twice a day. Had previous seizure episode either due to drinking or medication non-compliance. He was given Keppra 1gm in ED. Upon seeing the patient his condition seems to be improving. [id number] with medication (currently is back to baseline--mentation zee) Oral cancer Possible acute purulent tracheobronchitis. Tobacco use Hx Alcohol abuse. Plan: Continue Keppra 750mg bid. There is no need for the patient to get the routine EEG since the patient is back to baseline. Patient is currently on thiamine 100 mg daily. Continue Vitamin B12 1000mcg daily. The patient was notified that he needs to follow up with a neurologist as an outpatient regarding his seizures. He was counseled on the taken his antiepileptic medication on a daily basis and may contribute he has enough tablets. Regarding patient abdominal pain, possible tracheobronchitis we will defer to primary team. Patient cannot drive until he is seizure-free for 6 month per [place] law. No using heavy machinery or swimming unassisted and avoiding heights We will sign off. Inderjit Butterfield MD Neuro-hospitalist Time with Patient: Greater than 30
[2019-10-25] MEDS: PIPERACILLIN-TAZOBACTAM 3.375 GM in SODIUM CHLORIDE 0.9% 100 ML IVPB SCH ×4 (00:52→23:32)
[2019-10-25] MEDS: SODIUM CHLORIDE 0.9% 1,000 ML with MVI, ADULT NO.4 WITH VIT K 10 ML, THIAMINE 100 MG, F... IV SCH ×8 (02:56→05:04)
[2019-10-25] MEDS: IPRATROPIUM-ALBUTEROL 3 ML NEB INHALATION SCH ×3 (06:57→20:07)
[2019-10-25] MEDS: SYMBICORT 160-4.5 MCG INHALER INHALATION SCH ×2 (06:58→20:07)
[2019-10-25] MEDS: CYANOCOBALAMIN 500 MCG TAB PO SCH (07:54)
[2019-10-25] MEDS: HEPARIN SODIUM,PORCINE 5,000 UNIT/ML 1 ML VIAL SQ SCH ×2 (07:54→20:59)
[2019-10-25] MEDS: PANTOPRAZOLE 40 MG/10 ML VIAL IVP SCH (07:54)
[2019-10-25] MEDS: CHOLECALCIFEROL 1,000 UNIT TAB PO SCH (07:54)
[2019-10-25 09:04] LABS: Basophils % (A) 0 %; Eosinophils # (A) 0.1 k/uL (0-0.7); Eosinophils % (A) 1 %; HCT 35.4 % (39.0-53.0); HGB 11.3 gm/dL (13.0-17.5); Lymphocytes # (A) 0.5 k/uL (1.0-4.8); Lymphocytes % (A) 5 %; MCH 30.8 pg (25.0-35.0); MCHC 32.1 g/dL (31.0-37.0); MCV 96.1 fL (80.0-100.0); Mean Platelet Volume 7.8; Monocytes # (A) 0.4 k/uL (0-1.0); Monocytes % (A) 5 %; Neutrophils # (A) 7.7 k/uL (1.3-7.7); Neutrophils % (A) 87 %; Platelet Count 189 k/uL (150-450); RBC 3.68 m/uL (4.30-5.90); RDW 14.2 % (11.5-15.5); WBC 8.8 k/uL (3.8-10.6)
[2019-10-25 09:16] LABS: African American GFR (CKD) >90 (>60 ml/min/1.73 sqM); Anion Gap 4 mmol/L; Blood Urea Nitrogen 12 mg/dL (9-20); Calcium 7.4 mg/dL (8.4-10.2); Carbon Dioxide 24 mmol/L (22-30); Chloride 110 mmol/L (98-107); Glucose 96 mg/dL (74-99); Non-African American GFR(CKD) >90 (>60 ml/min/1.73 sqM); Potassium 3.1 mmol/L (3.5-5.1); Sodium 138 mmol/L (137-145)
[2019-10-25] MEDS ORDERED: Potassium Replacement Protocol 1 EACH MISC MISCELLANE PRN ×2 (09:52→14:26)
[2019-10-25] MEDS: POTASSIUM CHLORIDE ER 20 MEQ TAB.ER PO SCH ×4 (10:01→16:02)
[2019-10-25] MEDS ORDERED: 1: MVI, ADULT NO.4 WITH VIT K 10 ML, THIAMINE 100 MG, FOLIC ACID 1 MG in SODIUM CHLORIDE IV SCH ×4 (14:00)
--- NOTE | 2019-10-25 14:03 | P.CNPUL ---
History of Present Illness Consult date: 10/25/19 Reason for consult: abnormal CXR/CT Chief complaint: Cavitating infiltrate in the right upper lobe, new interstitial infiltrate History of present illness: 64-year-old white male patient with past neck with history of seizures noncompliant with his Keppra, who was brought into the hospital on 10/23/2019 after he was found to have a seizure lasting 3-5 minutes by his roommate. It appeared that patient had not filled his Keppra prescription. Patient is also believed to have alcohol abuse history. Other history includes COPD, history of oral cancer, with a surgical resection of right posterior part of the tongue followed by radiation therapy. CT of the brain showed no acute abnormality. Postictally patient was confused. Admission lab work showed white blood cell count of 17.1. His initial chest x-ray showed COPD, coarsened interstitium and biapical pleural thickening. Chest x-ray on 10/24/2019 showed asymmetric interstitial coarsening of the left lung 3 demonstrated, and emphysematous changes. Antibiotics were added to the regimen. Nephrology is following, and patient's sensorium has improved, is back on Keppra, he is on B12, Keppra and Ativan for COPD protocol. CT chest, abdomen and pelvis without contrast was obtained showing cavitating infiltrate in the lateral aspect of the right upper lobe which is unchanged from his previous CT of the chest from 05/22/2019, and new interstitial infiltrate in the posterior segment of left upper lobe compared to the old exam, there is irregular pleural thickening and fluid and infiltrate at the posterior lung bases that is mostly new compared to old exam. There is mild amount of free fluid in the right paracolic gutter and in the pelvis compared to old exam. Patient appears to be comfortable on today's exam, he is on 2 L of oxygen at pulse ox of 92%, he is awake and alert, he is oriented 3, he is able to provide some medical history. He is to be in no acute distress, his been afebrile since admission. Currently on Zosyn for antibiotic coverage. Review of Systems All systems: negative Constitutional: Denies chills, Denies fever Eyes: denies blurred vision, denies pain Ears, nose, mouth and throat: Denies headache, Denies sore throat Cardiovascular: Denies chest pain, Denies shortness of breath Respiratory: Reports dyspnea, Denies cough Gastrointestinal: Denies abdominal pain, Denies diarrhea, Denies nausea, Denies vomiting Musculoskeletal: Denies myalgias Integumentary: Denies pruritus, Denies rash Neurological: Denies numbness, Denies weakness Psychiatric: Denies anxiety, Denies depression Endocrine: Denies fatigue, Denies weight change Past Medical History Past Medical History: Unable to Obtain, Cancer, Seizure Disorder Additional Past Medical History / Comment(s): History of oral cancer, with removal of all teeth, and surgical resection of a posterior portion of the right side of the tongue followed by radiation therapy History of Any Multi-Drug Resistant Organisms: None Reported Past Surgical History: Orthopedic Surgery Additional Past Surgical History / Comment(s): Left arm ortho surgery Past Psychological History: Unable to Obtain Smoking Status: Current every day smoker Past Alcohol Use History: Heavy Past Drug Use History: Marijuana Additional Drug Use History / Comment(s): does not drink alcohol anymore per brother. Medications and Allergies Home Medications Medication Instructions Recorded Confirmed Type Cholecalciferol [Vitamin D3 (25 5,000 unit PO DAILY 10/23/19 10/23/19 History Mcg = 1000 Iu)] levETIRAcetam [Keppra] 750 mg PO BID 10/23/19 10/23/19 History Allergies Allergy/AdvReac Type Severity Reaction Status Date / Time No Known Allergies Allergy Verified 10/23/19 09:15 Physical Exam Vitals: Vital Signs Temp Pulse Pulse Resp BP Pulse Ox 10/25/19 11:15 89 10/25/19 11:06 89 10/25/19 07:52 18 88 L 10/25/19 07:13 84 10/25/19 07:00 98.4 F 94 18 101/52 92 L 10/25/19 06:57 84 10/25/19 00:26 98.0 F 92 13 108/64 92 L 10/24/19 19:35 98.2 F 89 18 91/59 10/24/19 19:18 80 10/24/19 19:05 78 10/24/19 16:32 125/68 10/24/19 15:00 98.6 F 86 18 80/57 95 Intake and Output 10/24/19 10/25/19 10/25/19 22:59 06:59 14:59 Output Total 950 300 Balance -950 -300 Output: Urine 950 300 Uretheral (Bella) 600 Other: Voiding Method Indwelling Catheter Indwelling Catheter Indwelling Catheter # Voids 0 # Bowel Movements 1 1 GENERAL EXAM: Alert, cachectic, 64-year-old white male in 2 L of oxygen the pulse ox of 92%, appears disheveled, but appropriate, pleasant, comfortable in no apparent distress. HEAD: Normocephalic/atraumatic. EYES: Normal reaction of pupils, equal size. Conjunctiva pink, sclera white. NOSE: Clear with pink turbinates MOUTH: Patient is edentulous, oral inspection reveals part of the right posterior portion of the tongue status post surgical resection for history of or al cancer THROAT: No erythema or exudates. NECK: No masses, no JVD, no thyroid enlargement, no adenopathy. CHEST: No chest wall deformity. Symmetrical expansion. LUNGS: Equal air entry with no crackles, wheeze, rhonchi or dullness. CVS: Regular rate and rhythm, normal S1 and S2, no gallops, no murmurs, no rubs ABDOMEN: Soft, nontender. No hepatosplenomegaly, normal bowel sounds, no guarding or rigidity. EXTREMITIES: No clubbing, no edema, no cyanosis, 2+ pulses and upper and lower extremities. MUSCULOSKELETAL: Muscle strength and tone normal. SPINE: No scoliosis or deformity SKIN: No rashes CENTRAL NERVOUS SYSTEM: Alert and oriented -3. No focal deficits, tone is normal in all 4 extremities. PSYCHIATRIC: Alert and oriented -3. Appropriate affect. Intact judgment and insight. Results - Laboratory Findings CBC and BMP: 10/25/19 08:35 10/25/19 08:35 Abnormal lab findings: Abnormal Labs 10/23/19 10/23/19 10/23/19 09:36 09:36 12:42 WBC 17.1 H RBC Hgb Hct Neutrophils # 15.6 H Lymphocytes # 0.6 L Potassium Chloride Glucose 111 H POC Glucose (mg/dL) Calcium Urine Protein 1+ H Urine Ketones 2+ H Urine Mucus Rare H 10/24/19 10/24/19 10/24/19 06:55 06:55 07:15 WBC 11.5 H RBC 3.92 L Hgb 11.8 L Hct 37.4 L Neutrophils # 10.3 H Lymphocytes # 0.6 L Potassium Chloride 109 H Glucose 67 L POC Glucose (mg/dL) 70 L Calcium 7.9 L Urine Protein Urine Ketones Urine Mucus 10/25/19 10/25/19 08:35 08:35 WBC RBC 3.68 L Hgb 11.3 L Hct 35.4 L Neutrophils # Lymphocytes # 0.5 L Potassium 3.1 L Chloride 110 H Glucose POC Glucose (mg/dL) Calcium 7.4 L Urine Protein Urine Ketones Urine Mucus - Diagnostic Findings Chest x-ray: report reviewed, image reviewed CT scan - chest: report reviewed, image reviewed Assessment and Plan Plan: Assessment: #1. Acute hypoxic respiratory failure possibly related to left upper lobe pneumonia, with CT chest showing a new interstitial infiltrate in the posterior segment left upper lobe. #2. Cavitating infiltrate in the lateral aspect of right upper lobe, unchanged from July 2019, could be related to post radiation changes, following radiation therapy for oral cancer #3. Acute metabolic encephalopathy, multifactorial, related to postictal state following a seizure, and pneumonia #4. History of oral cancer status post surgical resection of a portion of the tongue followed by radiation therapy #5. Chronic and ongoing tobacco use, smokes a pack a day #6. History of alcohol abuse #7. Medical noncompliance #8. History of COPD #9. History of seizure disorder Plan: Continue current antibiotics, will try to obtain a sputum specimen, continue nebulized bronchodilators, patient is afebrile, mental status seems to have improved from admission, leukocytosis is improving, hemodynamically stable, it appears that patient has a new infiltrate in his left upper lobe, likely related to pneumonia. We will continue to follow I performed a history & physical examination of the patient and discussed their management with my nurse practitioner, Anastasiia Valdez. I reviewed the nurse practitioner's note and agree with the documented findings and plan of care. Lung sounds are positive for diminished breath sounds. The findings and the impression was discussed with the patient. I attest to the documentation by the nurse practitioner. Time with Patient: Greater than 30
[2019-10-25] MEDS: TAMSULOSIN 0.4 MG CAP.ER.24H PO SCH (17:56)
--- NOTE | 2019-10-25 21:14 | PN ---
PROGRESS NOTE DATE OF SERVICE: 10/25/2019 This 64-year-old gentleman who was admitted with change in mental status, acute metabolic encephalopathy, also had acute seizure disorder. The patient also had bilateral interstitial pneumonia or acute purulent tracheobronchitis. Patient also had significant history of EtOH. Patient also had malnutrition also. CT scan noted. Monitoring the patient closely. A CT scan of the chest, abdomen and pelvis was noted, which was done, which showed a cavitating infiltrate in the lateral aspect of the right upper lobe, unchanged. New interstitial focus in the posterior part of the side was also noted. Urinary bladder thickening was also noted. Pulmonary consultation has been sought and the cavitating lesion could be because of cavitating pneumonia or old changes secondary radiation according to the conservation educator. PAST MEDICAL HISTORY: Reviewed. REVIEW OF SYSTEMS: CARDIOVASCULAR SYSTEM: No angina. RESPIRATION: As mentioned earlier. GI: As mentioned earlier. : As mentioned earlier. NERVOUS SYSTEM: No numbness or weakness. CURRENT MEDICATIONS: Reviewed and include: 1. [place] 5 mg. 2. DuoNeb. 3. Symbicort 4.5. 4. Vitamin D3. 5. Heparin. 6. Dilaudid. 7. Ativan replacement protocol. 8. Zosyn. 9. Flomax. PHYSICAL EXAMINATION: GENERAL: Patient is alert and oriented times two. VITAL SIGNS: Pulse 96, bp 114/66, respirations 18, temp 98 degrees, pulse ox 93% on 2 liters. HEENT: Conjunctivae clear. Oral mucosa is moist. NECK: No jugular venous distention. No carotid bruits. No lymph node enlargement. RESPIRATORY: Breath sounds diminished at the bases. A few scattered rhonchi and crackles. HEART: S1 and S2, muffled. ABDOMEN: Soft, no tenderness. EXTREMITIES: No edema, no swelling. NERVOUS: Diffusely weak. LABS: WBC 8.8, hemoglobin 11.3, sodium 130, potassium 3.8 and 2.9. ASSESSMENT: 1. Change in mental status secondary to metabolic encephalopathy, multifactorial. 2. Acute seizure disorder, grand mal and tonic-clonic. 3. Acute bilateral pneumonia, possibly interstitial, possibly aspiration pneumonia. 4. Right upper lobe cavitating lesion, possibly cavitating pneumonia versus malignancy versus secondary to oral cancer radiation. 5. Hypokalemia. 6. History oral cancer. 7. Acute delirium tremens. 8. Chronic small ischemic changes in the CT scan of the brain. 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 10.Severe protein calorie malnutrition with BMI of 17.9. 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 12.Increased WBC. 13.History of chronic obstructive pulmonary disease. 14.History of THC. 15.Anemia, normocytic anemia of chronic disease. 16.FULL CODE. RECOMMENDATIONS AND DISCUSSION: In this 64-year-old gentleman who presented with multiple complex medical problems, will continue to monitor, continue symptomatic treatment. PT OT evaluation, possible ECF rehab. Otherwise, with respect to the lung lesions, we will continue to monitor. Pulmonary evaluation appreciated. We will continue the bronchodilators and as well as broad-spectrum IV antibiotics. I would also obtain a speech pathology evaluation and as well as a modified barium swallow with speech pathology. The overall prognosis is guarded. Further recommendations to follow. See orders for details. Otherwise, we will talk with ed case manager and social workers for possible ECF rehab. LIO / ALE: [id number] /
[2019-10-26] MEDS: SYMBICORT 160-4.5 MCG INHALER INHALATION SCH ×2 (07:33→20:59)
[2019-10-26] MEDS: IPRATROPIUM-ALBUTEROL 3 ML NEB INHALATION SCH ×3 (07:33→20:59)
[2019-10-26 08:11] LABS: Basophils % (A) 0 %; Eosinophils # (A) 0.2 k/uL (0-0.7); Eosinophils % (A) 3 %; HCT 33.1 % (39.0-53.0); HGB 10.6 gm/dL (13.0-17.5); Lymphocytes # (A) 0.6 k/uL (1.0-4.8); Lymphocytes % (A) 11 %; MCH 30.4 pg (25.0-35.0); MCHC 32.1 g/dL (31.0-37.0); MCV 94.6 fL (80.0-100.0); Monocytes # (A) 0.4 k/uL (0-1.0); Monocytes % (A) 6 %; Neutrophils # (A) 4.5 k/uL (1.3-7.7); Neutrophils % (A) 78 %; Platelet Count 174 k/uL (150-450); RBC 3.49 m/uL (4.30-5.90); RDW 14.3 % (11.5-15.5); WBC 5.8 k/uL (3.8-10.6)
[2019-10-26 08:21] LABS: African American GFR (CKD) >90 (>60 ml/min/1.73 sqM); Anion Gap 1 mmol/L; Blood Urea Nitrogen 6 mg/dL (9-20); Calcium 7.6 mg/dL (8.4-10.2); Carbon Dioxide 23 mmol/L (22-30); Chloride 115 mmol/L (98-107); Glucose 86 mg/dL (74-99); Non-African American GFR(CKD) >90 (>60 ml/min/1.73 sqM); Potassium 3.9 mmol/L (3.5-5.1); Sodium 139 mmol/L (137-145)
[2019-10-26] MEDS: CHOLECALCIFEROL 1,000 UNIT TAB PO SCH (08:25)
[2019-10-26] MEDS: CYANOCOBALAMIN 500 MCG TAB PO SCH (08:26)
[2019-10-26] MEDS: HEPARIN SODIUM,PORCINE 5,000 UNIT/ML 1 ML VIAL SQ SCH ×2 (08:26→21:26)
[2019-10-26] MEDS: PANTOPRAZOLE 40 MG/10 ML VIAL IVP SCH (08:26)
[2019-10-26] MEDS: PIPERACILLIN-TAZOBACTAM 3.375 GM in SODIUM CHLORIDE 0.9% 100 ML IVPB SCH ×3 (08:36→23:48)
--- NOTE | 2019-10-26 11:59 | P.PN ---
Subjective Progress Note Date: 10/26/19 Principal diagnosis: Cavitating infiltrate in the right upper lobe, new interstitial infiltrate 64-year-old white male patient with past neck with history of seizures noncompliant with his Keppra, who was brought into the hospital on 10/23/2019 after he was found to have a seizure lasting 3-5 minutes by his roommate. It appeared that patient had not filled his Keppra prescription. Patient is also believed to have alcohol abuse history. Other history includes COPD, history of oral cancer, with a surgical resection of right posterior part of the tongue followed by radiation therapy. CT of the brain showed no acute abnormality. Postictally patient was confused. Admission lab work showed white blood cell count of 17.1. His initial chest x-ray showed COPD, coarsened interstitium and biapical pleural thickening. Chest x-ray on 10/24/2019 showed asymmetric interstitial coarsening of the left lung 3 demonstrated, and emphysematous changes. Antibiotics were added to the regimen. Nephrology is following, and patient's sensorium has improved, is back on Keppra, he is on B12, Keppra and Ativan for COPD protocol. CT chest, abdomen and pelvis without contrast was ob tained showing cavitating infiltrate in the lateral aspect of the right upper lobe which is unchanged from his previous CT of the chest from 05/22/2019, and new interstitial infiltrate in the posterior segment of left upper lobe compared to the old exam, there is irregular pleural thickening and fluid and infiltrate at the posterior lung bases that is mostly new compared to old exam. There is mild amount of free fluid in the right paracolic gutter and in the pelvis compared to old exam. Patient appears to be comfortable on today's exam, he is on 2 L of oxygen at pulse ox of 92%, he is awake and alert, he is oriented 3, he is able to provide some medical history. He is to be in no acute distress, his been afebrile since admission. Currently on Zosyn for antibiotic coverage. On 10/26/2019 patient seen in follow-up on a general medical surgical floor. He is awake and alert, in no acute distress, is currently on 2 L of oxygen his pulse ox is 95%, he is afebrile, hemodynamically he stable, no altered mentation, he is answering questions appropriately, no significant cough or congestion or chest pain. His labs have been reviewed his white count is 5.8, hemoglobin is 10.6, sodium is 139, potassium 3.9, chloride is 1:15, BUN is 6 creatinine 0.65. He is currently on IV Zosyn for antibiotic coverage, he is on nebulized bronchodilators, there is no hemoptysis, or chest discomfort, his breathing quite comfortably. Increase activity as tolerated, we can switch the patient to oral Augmentin today and discharge him home Objective - Vital Signs Vital signs: Vital Signs Temp 98.7 F 10/26/19 07:03 Pulse 100 10/26/19 07:45 Resp 16 10/26/19 08:30 BP 107/64 10/26/19 07:03 Pulse Ox 95 10/26/19 07:03 Intake & Output 10/25/19 10/26/19 10/26/19 18:59 06:59 18:59 Intake Total 1000 Output Total 600 650 Balance -600 350 Intake: Intake, IV Titration 1000 Amount 0.9% NaCl with KCl 20 Meq 1000 /l 1,000 ml @ 150 mls/hr IV .[facility] Rx#: [id number] Output: Urine 600 650 Other: Voiding Method Indwelling Catheter Indwelling Catheter Indwelling Catheter # Bowel Movements 1 - Exam GENERAL EXAM: Alert, very pleasant, 64-year-old white male, on 2 L of oxygen and the pulse ox of 95%, comfortable in no apparent distress. HEAD: Normocephalic/atraumatic. EYES: Normal reaction of pupils, equal size. Conjunctiva pink, sclera white. NOSE: Clear with pink turbinates. THROAT: No erythema or exudates. NECK: No masses, no JVD, no thyroid enlargement, no adenopathy. CHEST: No chest wall deformity. Symmetrical expansion. LUNGS: Equal air entry with no crackles, wheeze, rhonchi or dullness. CVS: Regular rate and rhythm, normal S1 and S2, no gallops, no murmurs, no rubs ABDOMEN: Soft, nontender. No hepatosplenomegaly, normal bowel sounds, no guarding or rigidity. EXTREMITIES: No clubbing, no edema, no cyanosis, 2+ pulses and upper and lower extremities. MUSCULOSKELETAL: Muscle strength and tone normal. SPINE: No scoliosis or deformity SKIN: No rashes CENTRAL NERVOUS SYSTEM: Alert and oriented -3. No focal deficits, tone is normal in all 4 extremities. PSYCHIATRIC: Alert and oriented -3. Appropriate affect. Intact judgment and insight. - Labs CBC & Chem 7: 10/26/19 07:48 10/26/19 07:48 Labs: Abnormal Lab Results - Last 24 Hours (Table) 10/25/19 10/26/19 10/26/19 Range/Units 13:25 07:48 07:48 RBC 3.49 L (4.30-5.90) m/uL Hgb 10.6 L (13.0-17.5) gm/dL Hct 33.1 L (39.0-53.0) % Lymphocytes # 0.6 L (1.0-4.8) k/uL Potassium 3.2 L (3.5-5.1) mmol/L Chloride 115 H (98-107) mmol/L BUN 6 L (9-20) mg/dL Creatinine 0.65 L (0.66-1.25) mg/dL Calcium 7.6 L (8.4-10.2) mg/dL Assessment and Plan Plan: Assessment: #1. Acute hypoxic respiratory failure possibly related to left upper lobe pneumonia, with CT chest showing a new interstitial infiltrate in the posterior segment left upper lobe. #2. Cavitating infiltrate in the lateral aspect of right upper lobe, unchanged from July 2019, could be related to post radiation changes, following radiation therapy for oral cancer #3. Acute metabolic encephalopathy, multifactorial, related to postictal state following a seizure, and pneumonia, improved #4. History of oral cancer status post surgical resection of a portion of the tongue followed by radiation therapy #5. Chronic and ongoing tobacco use, smokes a pack a day #6. History of alcohol abuse #7. Medical noncompliance #8. History of COPD #9. History of seizure disorder Plan: Patient has remained stable, no altered mentation, no worsening dyspnea, no significant cough or congestion, no hemoptysis or chest pain. Today's labs have been reviewed, patient has been afebrile, his been on Zosyn for antibiotic coverage, he has remained stable, his labs have been reviewed, no leukocytosis, no fever or chills, wean FiO2, from pulmonary perspective patient could be considered for discharge home today on oral Augmentin, breathing treatments, and would like to see the patient in follow-up in the office in 7-[address] Santana I performed a history & physical examination of the patient and discussed their management with my nurse practitioner, Anastasiia Valdez. I reviewed the nurse practitioner's note and agree with the documented findings and plan of care. Lung sounds are positive for diminished breath sounds. The findings and the i mpression was discussed with the patient. I attest to the documentation by the nurse practitioner. Time with Patient: Less than 30
[2019-10-26] MEDS: TAMSULOSIN 0.4 MG CAP.ER.24H PO SCH (16:31)
--- NOTE | 2019-10-26 17:28 | PN ---
PROGRESS NOTE DATE OF SERVICE: 10/26/2019 This 64-year-old gentleman who was admitted with change in mental status and metabolic encephalopathy also had seizure disorder. The patient also had bilateral pneumonia. Patient is on broad-spectrum IV antibiotics. Patient has improved significantly. A CT scan of the abdomen and pelvis was also done which showed a cavitating infiltrate in the lateral aspect of the right upper lobe. No chest pain. No palpitations. No fever. PHYSICAL EXAMINATION: Alert and oriented x2. Pulse is 103, blood pressure 141/91, respiration 20, temperature 98.3, pulse ox 94% on room air. HEENT: Conjunctivae normal. NECK: No jugular venous distention. CARDIOVASCULAR SYSTEM: S1, S2 muffled. RESPIRATORY SYSTEM: Breath sounds diminished at the bases. A few scattered rhonchi and crackles. Expiratory wheezing. ABDOMEN: Soft. NERVOUS SYSTEM: No focal deficit. LABS: WBC 5.3, hemoglobin 10.6, chloride is 115. ASSESSMENT: 1. Change in mental status secondary to metabolic encephalopathy, multifactorial. 2. Acute seizure disorder, grand mal, tonic-clonic. 3. Acute bilateral pneumonia, possibly interstitial and possibly aspiration pneumonia. 4. Right upper lobe cavitating lesion, possibly cavitating pneumonia versus malignancy versus secondary to oral cancer radiation. 5. Hypokalemia. 6. History of oral cancer. 7. Acute delirium tremens. 8. Chronic small-vessel ischemia on the CT scan of the brain. 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 10.Severe protein-calorie malnutrition; body mass index of 17.9. 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 12.Increased white count. 13.History of chronic obstructive pulmonary disease. 14.History of tetrahydrocannabinol. 15.Anemia, normocytic anemia of chronic disease. 16.FULL CODE. RECOMMENDATIONS AND DISCUSSION: I recommend to continue current medications, continue with the monitoring, symptomatic treatment. Continue the rest of the medications. PT/OT evaluation, possible ECF rehab. Alcohol rehab in the outpatient setting. Closely follow with renal social worker and counter caser. Further recommendations to follow. MMODL / IJN: [id number] /
[2019-10-27 07:38] VITALS: BP 124/76; RESP 16; TEMP 98.6
[2019-10-27] MEDS: IPRATROPIUM-ALBUTEROL 3 ML NEB INHALATION SCH ×2 (08:01→11:45)
[2019-10-27] MEDS: SYMBICORT 160-4.5 MCG INHALER INHALATION SCH (08:01)
[2019-10-27] MEDS: PANTOPRAZOLE 40 MG/10 ML VIAL IVP SCH (08:36)
[2019-10-27] MEDS: PIPERACILLIN-TAZOBACTAM 3.375 GM in SODIUM CHLORIDE 0.9% 100 ML IVPB SCH (08:36)
[2019-10-27] MEDS: HEPARIN SODIUM,PORCINE 5,000 UNIT/ML 1 ML VIAL SQ SCH (08:36)
[2019-10-27] MEDS: CYANOCOBALAMIN 500 MCG TAB PO SCH (08:36)
[2019-10-27] MEDS: CHOLECALCIFEROL 1,000 UNIT TAB PO SCH (08:36)
[2019-10-27 11:56] VITALS: PULSE 102
--- NOTE | 2019-10-27 12:25 | P.PN ---
Subjective Progress Note Date: 10/27/19 Principal diagnosis: Cavitating infiltrate in the right upper lobe, new interstitial infiltrate 64-year-old white male patient with past neck with history of seizures noncompliant with his Keppra, who was brought into the hospital on 10/23/2019 after he was found to have a seizure lasting 3-5 minutes by his roommate. It appeared that patient had not filled his Keppra prescription. Patient is also believed to have alcohol abuse history. Other history includes COPD, history of oral cancer, with a surgical resection of right posterior part of the tongue followed by radiation therapy. CT of the brain showed no acute abnormality. Postictally patient was confused. Admission lab work showed white blood cell count of 17.1. His initial chest x-ray showed COPD, coarsened interstitium and biapical pleural thickening. Chest x-ray on 10/24/2019 showed asymmetric interstitial coarsening of the left lung 3 demonstrated, and emphysematous changes. Antibiotics were added to the regimen. Nephrology is following, and patient's sensorium has improved, is back on Keppra, he is on B12, Keppra and Ativan for COPD protocol. CT chest, abdomen and pelvis without contrast was o btained showing cavitating infiltrate in the lateral aspect of the right upper lobe which is unchanged from his previous CT of the chest from 05/22/2019, and new interstitial infiltrate in the posterior segment of left upper lobe compared to the old exam, there is irregular pleural thickening and fluid and infiltrate at the posterior lung bases that is mostly new compared to old exam. There is mild amount of free fluid in the right paracolic gutter and in the pelvis compared to old exam. Patient appears to be comfortable on today's exam, he is on 2 L of oxygen at pulse ox of 92%, he is awake and alert, he is oriented 3, he is able to provide some medical history. He is to be in no acute distress, his been afebrile since admission. Currently on Zosyn for antibiotic coverage. On 10/26/2019 patient seen in follow-up on a general medical surgical floor. He is awake and alert, in no acute distress, is currently on 2 L of oxygen his pulse ox is 95%, he is afebrile, hemodynamically he stable, no altered mentation, he is answering questions appropriately, no significant cough or congestion or chest pain. His labs have been reviewed his white count is 5.8, hemoglobin is 10.6, sodium is 139, potassium 3.9, chloride is 1:15, BUN is 6 creatinine 0.65. He is currently on IV Zosyn for antibiotic coverage, he is on nebulized bronchodilators, there is no hemoptysis, or chest discomfort, his breathing quite comfortably. Increase activity as tolerated, we can switch the patient to oral Augmentin today and discharge him home The patient is seen today on the 2019 in follow-up on the regular medical floor. He is awake and alert in no acute distress. No worsening shortness of breath cough or congestion. No altered mentation. He is alert and oriented 3. Post exercise still maintaining O2 saturations in the 90s on room air during evaluation for home oxygen. He remains on DuoNeb inhalations, Symbicort, Zosyn. Objective - Vital Signs Vital signs: Vital Signs Temp 98.6 F 10/27/19 07:05 Pulse 102 H 10/27/19 11:55 Resp 16 10/27/19 07:05 BP 124/76 10/27/19 07:05 Pulse Ox 96 10/27/19 11:14 Intake & Output 10/26/19 10/27/19 10/27/19 18:59 06:59 18:59 Intake Total 1300 1011.2 Output Total 800 1625 900 Balance 500 -613.8 -900 Intake: Intake, IV Titration 1000 1011.2 Amount 0.9% NaCl with KCl 20 Meq 1000 /l 1,000 ml @ 150 mls/hr IV .BY DURATION ROSALIA Rx#: [id number] Mvi, Adult No.4 with Vit 1011.2 K 10 ml Thiamine 100 mg Folic Acid 1 mg In 0.9% NaCl with KCl 20 Meq/l 1, 000 ml @ 150 mls/hr IV . BY DURATION ROSALIA Rx#: [id number] Oral 300 Output: Urine 800 1625 900 Other: Voiding Method Indwelling Catheter Indwelling Catheter Indwelling Catheter # Voids 1 - Exam GENERAL EXAM: Alert, very pleasant, 64-year-old white male, on room air and the pulse ox of 94%, comfortable in no apparent distress. HEAD: Normocephalic/atraumatic. EYES: Normal reaction of pupils, equal size. Conjunctiva pink, sclera white. NOSE: Clear with pink turbinates. THROAT: No erythema or exudates. NECK: No masses, no JVD, no thyroid enlargement, no adenopathy. CHEST: No chest wall deformity. Symmetrical expansion. LUNGS: Equal air entry with no crackles, wheeze, rhonchi or dullness. CVS: Regular rate and rhythm, normal S1 and S2, no gallops, no murmurs, no rubs ABDOMEN: Soft, nontender. No hepatosplenomegaly, normal bowel sounds, no guarding or rigidity. EXTREMITIES: No clubbing, no edema, no cyanosis, 2+ pulses and upper and lower extremities. MUSCULOSKELETAL: Muscle strength and tone normal. SPINE: No scoliosis or deformity SKIN: No rashes CENTRAL NERVOUS SYSTEM: No focal deficits, tone is normal in all 4 extremities. PSYCHIATRIC: Alert and oriented -3. Appropriate affect. Intact judgment and insight. - Labs CBC & Chem 7: 10/26/19 07:48 10/26/19 07:48 Assessment and Plan Assessment: #1. Acute hypoxic respiratory failure possibly related to left upper lobe pneumonia, with CT chest showing a new interstitial infiltrate in the posterior segment left upper lobe. #2. Cavitating infiltrate in the lateral aspect of right upper lobe, unchanged from July 2019, could be related to post radiation changes, following radiation therapy for oral cancer #3. Acute metabolic encephalopathy, multifactorial, related to postictal state following a seizure, and pneumonia, improved #4. History of oral cancer status post surgical resection of a portion of the tongue followed by radiation therapy #5. Chronic and ongoing tobacco use, smokes a pack a day #6. History of alcohol abuse #7. Medical noncompliance #8. History of COPD #9. History of seizure disorder Plan: The patient was seen and evaluated by Dr. Santana He is cleared for discharge from the pulmonary standpoint Continue DuoNeb inhalations and Symbicort Complete course of antibiotics in the form of Augmentin Follow-up in the office in 1-2 weeks' time I, the cosigning physician, performed a history & physical examination of the patient. Lungs sounds are clear, diminished. Maintaining good O2 saturations in the 90s on room air. I discussed the assessment and plan of care with my nurse practitioner, Susan Elias. I attest to the above note as dictated by her.
--- NOTE | 2019-10-27 13:47 | FL ---
EXAMINATION TYPE: FL barium swallow w video DATE OF EXAM: 10/26/2019 MODIFIED BARIUM SWALLOW FLUOROSCOPY EXAM CLINICAL HISTORY: Dysphagia. TECHNIQUE: Notified barium swallow study is performed utilizing thin liquid barium, honey and nectar thick liquid barium, barium thick puree. COMPARISON: None. FINDINGS: The oral and pharyngeal phases show satisfactory initiation and propagation with all modali ties tested. There is persistent penetration despite strategies. There is no evidence of aspiration with any modality tested. Pharyngeal residue is seen, which clears with subsequent swallows. IMPRESSION: No evidence of aspiration. Please refer to speech therapist notes for further details i f necessary.
--- NOTE | 2019-10-28 14:46 | P.DS ---
Providers Date of admission: 10/23/19 12:28 Expected date of discharge: 10/27/19 Attending physician: Lior Valdes MD Consults: 10/23/19 12:32 Consult Physician Urgent Consulting Provider: Inderjit Butterfield Consult Reason/Comments: Altered mental status Do you want consulting provider notified?: Yes 10/24/19 15:09 Consult Physician Routine Consulting Provider: Nadine Santana Consult Reason/Comments: interstitial pneumonia Do you want consulting provider notified?: Yes Primary care physician: Stated None Hospital Course: Final diagnosis Change in mental status secondary to metabolic encephalopathy, multifactorial Acute seizure disorder, grand mal,tonic-clonic Acute bilateral pneumonia, possibly interstitial and possibly aspiration pneumonia Right upper lobe cavitating lesion, possible cavitating pneumonia versus malignancy versus secondary to oral cancer radiation hypokalemia History of oral cancer Acute delirium tremens chronic small vessel ischemia on the CT scan of the brain alcohol dementia on the CT scan of the brain, possibly severe protein calorie malnutrition with a BMI of 17.9 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 Patient will continue with homecare in the outpatient setting. Patient will follow-up with Dr. Camacho upon discharge. Patient also instructed to follow up with Dr. Santana in the outpatient setting. Patient will continue on Augmentin twice daily for the next week. Total time taken is greater than 35 minutes. History of present illness This is a 64-year-old male who was recently admitted with change in mental status and metabolic encephalopathy and was being closely monitored. Patient also has seizure disorder and was evaluated by neurology and will continue on Keppra 750mg twice daily. Patient was also seen and evaluated by pulmonary recommending outpatient follow up and continued antibiotic therapy along with duoneb treatments. Patient was also evaluated by speech pathology and underwent swallow eval with no aspiration noted. Patient instructed to continue with thickened liquids. Patient had a CT of the chest showing a cavitating infiltrate in the lateral aspect of the right upper lobe. Currently no reports of chest pain, palpitations, or worsening shortness of breath. Patient is afebrile. No reports of nausea or vomiting and patient is tolerating diet. Patient will continue with home care in the outpatient setting. Guarded prognosis. On exam vital signs are stable. Temp is 98.6F, pulse is 98, respirations are 16, blood pressure 124/76, oxygen saturation is 94 % on room air. Cardio S1, S2 are present. Respiratory shows diminished breath sounds bilaterally with some scattered rhonchi noted. Abdomen is soft and nontender. Nervous system shows no focal deficits. Please refer to medication reconciliation sheet for a list of medications. Patient Condition at Discharge: Fair Plan - Discharge Summary Discharge Rx Participant: No New Discharge Prescriptions: New Amoxic-Pot Clav 875-125Mg [Augmentin 875-125] 1 tab PO Q12HR 7 Days #14 tab Ipratropium-Albuterol Nebulize [Duoneb 0.5 mg-3 mg/3 ml Soln] 3 ml INHALATION RT-TID 30 Days #90 ml Ipratropium-Albuterol Nebulize [Duoneb 0.5 mg-3 mg/3 ml Soln] 3 ml INHALATION RT-TID PRN ml PRN Reason: Shortness Of Breath Or Wheezing Tamsulosin [Flomax] 0.4 mg PO PC-SUPPER 30 Days #30 cap.er.24h Folic Acid 1 mg PO DAILY 30 Days #30 tablet Multivitamin [Multivitamins Adult Gummies] 1 each PO DAILY 30 Days #30 tablet Budesonide-Formot 160-4.5 Mcg [Symbicort 160-4.5 Mcg Inhaler] 2 puff INHALATION RT-BID 30 Days #1 puff Thiamine [Vitamin B-1] 100 mg PO DAILY 30 Days #30 tablet Cyanocobalamin [Vitamin B-12] 1,000 mcg PO DAILY 30 Days #30 tab Budesonide/Formoterol Fumarate [Symbicort 160-4.5 Mcg Inhaler] 1 puff IH BID #1 hfa.aer.ad Continue Cholecalciferol [Vitamin D3 (25 Mcg = 1000 Iu)] 5,000 unit PO DAILY levETIRAcetam [Keppra] 750 mg PO BID Discharge Medication List Cholecalciferol [Vitamin D3 (25 Mcg = 1000 Iu)] 5,000 unit PO DAILY 10/23/19 [History] levETIRAcetam [Keppra] 750 mg PO BID 10/23/19 [History] Amoxic-Pot Clav 875-125Mg [Augmentin 875-125] 1 tab PO Q12HR 7 Days #14 tab 10/27/19 [Rx] Budesonide-Formot 160-4.5 Mcg [Symbicort 160-4.5 Mcg Inhaler] 2 puff INHALATION RT-BID 30 Days #1 puff 10/27/19 [Rx] Budesonide/Formoterol Fumarate [Symbicort 160-4.5 Mcg Inhaler] 1 puff IH BID #1 hfa.aer.ad 10/27/19 [Rx] Cyanocobalamin [Vitamin B-12] 1,000 mcg PO DAILY 30 Days #30 tab 10/27/19 [Rx] Folic Acid 1 mg PO DAILY 30 Days #30 tablet 10/27/19 [Rx] Ipratropium-Albuterol Nebulize [Duoneb 0.5 mg-3 mg/3 ml Soln] 3 ml INHALATION RT-TID 30 Days #90 ml 10/27/19 [Rx] Ipratropium-Albuterol Nebulize [Duoneb 0.5 mg-3 mg/3 ml Soln] 3 ml INHALATION RT-TID PRN ml 10/27/19 [Rx] Multivitamin [Multivitamins Adult Gummies] 1 each PO DAILY 30 Days #30 tablet 10/27/19 [Rx] Tamsulosin [Flomax] 0.4 mg PO PC-SUPPER 30 Days #30 cap.er.24h 10/27/19 [Rx] Thiamine [Vitamin B-1] 100 mg PO DAILY 30 Days #30 tablet 10/27/19 [Rx] Follow up Appointment(s)/Referral(s): Marciano Camacho MD [REFERRING] - 1 Week (Please call office for new patient office visit) [facility] [NON-STAFF] - 1 Week Nadine Santana MD [STAFF PHYSICIAN] - 11/10/19 3:15 pm (With Catherine) Patient Instructions/Handouts: Levetiracetam (By mouth), Recurrent Seizures in Adults (DC) Activity/Diet/Wound Care/Special Instructions: Activity Limited until follow-up Follow-up with primary care provider upon discharge Continue current diet Continue with antibiotics until finished Follow-up with pulmonary in the outpatient setting Continue with breathing inhalational treatments Discharge Disposition: HOME WITH HOME HEALTH SERVICES
== END 2019-10-27 13:36 | disposition home health service (06) | DRG 100 ==
LOC: EC 08:52 → 4SSUR 12:28
PROVIDERS: ADMIT Internal Medicine; ATTEND Internal Medicine
DX: G40.409 Other generalized epilepsy and epileptic syndromes, not intractable, without status epilepticus (principal); G93.41 Metabolic encephalopathy; J69.0 Pneumonitis due to inhalation of food and vomit; J96.01 Acute respiratory failure with hypoxia; E43 Unspecified severe protein-calorie malnutrition; F10.231 Alcohol dependence with withdrawal delirium; F10.27 Alcohol dependence with alcohol-induced persisting dementia; Z68.1 Body mass index [BMI] 19.9 or less, adult; J70.0 Acute pulmonary manifestations due to radiation; G72.1 Alcoholic myopathy; I67.82 Cerebral ischemia; F17.210 Nicotine dependence, cigarettes, uncomplicated; D63.8 Anemia in other chronic diseases classified elsewhere; J44.9 Chronic obstructive pulmonary disease, unspecified; J84.89 Other specified interstitial pulmonary diseases; R32 Unspecified urinary incontinence; Z85.819 Personal history of malignant neoplasm of unspecified site of lip, oral cavity, and pharynx; Z91.19 Patient's noncompliance with other medical treatment and regimen; E87.6 Hypokalemia; T42.6X6A Underdosing of other antiepileptic and sedative-hypnotic drugs, initial encounter; Z91.128 Patient's intentional underdosing of medication regimen for other reason; K08.0 Exfoliation of teeth due to systemic causes; Z79.899 Other long term (current) drug therapy; R91.8 Other nonspecific abnormal finding of lung field; Z11.59 Encounter for screening for other viral diseases
CPT/HCPCS: 36415; 70450; 71045; 71046; 71250; 74176; 74230; 80048; 80053; 80177; 80320; 81001; 82533; 83735; 84132; 85025; 94640; 96361; 96374; 99285

== ENCOUNTER 2020-06-22 15:47 | Emergency (ER) | payer OTHER ==
[2020-06-22 16:09] VITALS: RESP 18
[2020-06-22] MEDS ORDERED: SODIUM CHLORIDE 0.9% 1,000 ML IV STA (16:44)
[2020-06-22] MEDS ORDERED: levETIRAcetam IV 1,000 MG in SALINE 1 100ML.BAG IVPB STA (16:51)
--- NOTE | 2020-06-22 17:03 | ED ---
Seizure HPI - General Chief Complaint: Seizure Stated Complaint: Seizures Time Seen by Provider: 06/22/20 16:43 Source: patient, EMS, RN notes reviewed Mode of arrival: EMS Limitations: altered mental status - History of Present Illness Initial Comments: 65-year-old white male in no acute distress, alert and oriented 4 , presents to the emergency room via EMS with complaints of seizure episode today. Patient has history of seizures states has not had medication in the past month. States since beginning of the year was taking a pill a day only, last month was going to pill every other day, this month has not had any Keppra. Patient states no other pain or injury, did not hit his head, did not bite his tongue, per EMS was incontinent of urine upon their arrival. Patient states he lives with his brother. MD Complaint: seizure -: hour(s) (approx one hour ago) Description of Episode: bladder incontinence (Patient with a history of seizures states has not had medication in over a month) -: second(s) (60 per ems) Trauma: No Seizure History: known seizure disorder, history of non-compliance with treatment (States was taking a pill a day as beginning of the year last month a pill every other day, this month has not had any Keppra) Place: home Associated Symptoms: denies other symptoms Treatments Prior to Arrival: none - Related Data Home Medications Medication Instructions Recorded Confirmed Cholecalciferol [Vitamin D3 (25 5,000 unit PO DAILY 10/23/19 10/23/19 Mcg = 1000 Iu)] Previous Rx's Medication Instructions Recorded Amoxic-Pot Clav 875-125Mg 1 tab PO Q12HR 7 Days #14 tab 10/27/19 [Augmentin 875-125] Budesonide-Formot 160-4.5 Mcg 2 puff INHALATION RT-BID 30 Days 10/27/19 [Symbicort 160-4.5 Mcg Inhaler] #1 puff Budesonide/Formoterol Fumarate 1 puff IH BID #1 hfa.aer.ad 10/27/19 [Symbicort 160-4.5 Mcg Inhaler] Cyanocobalamin [Vitamin B-12] 1,000 mcg PO DAILY 30 Days #30 tab 10/27/19 Folic Acid 1 mg PO DAILY 30 Days #30 tablet 10/27/19 Ipratropium-Albuterol Nebulize 3 ml INHALATION RT-TID 30 Days #90 10/27/19 [Duoneb 0.5 mg-3 mg/3 ml Soln] ml Ipratropium-Albuterol Nebulize 3 ml INHALATION RT-TID PRN ml 10/27/19 [Duoneb 0.5 mg-3 mg/3 ml Soln] Multivitamin [Multivitamins Adult 1 each PO DAILY 30 Days #30 tablet 10/27/19 Gummies] Tamsulosin [Flomax] 0.4 mg PO PC-SUPPER 30 Days #30 10/27/19 cap.er.24h Thiamine [Vitamin B-1] 100 mg PO DAILY 30 Days #30 tablet 10/27/19 levETIRAcetam [Keppra] 750 mg PO BID 30 Days #60 tab 06/22/20 Allergies Allergy/AdvReac Type Severity Reaction Status Date / Time No Known Allergies Allergy Verified 06/22/20 16:06 Review of Systems ROS Statement: Those systems with pertinent positive or pertinent negative responses have been documented in the HPI. ROS Other: All systems not noted in ROS Statement are negative. Past Medical History Past Medical History: Unable to Obtain, Cancer, Seizure Disorder Additional Past Medical History / Comment(s): History of oral cancer, with removal of all teeth, and surgical resection of a posterior portion of the right side of the tongue followed by radiation therapy History of Any Multi-Drug Resistant Organisms: None Reported Past Surgical History: Orthopedic Surgery Additional Past Surgical History / Comment(s): Left arm ortho surgery Past Psychological History: Unable to Obtain Smoking Status: Current every day smoker Past Alcohol Use History: Heavy Past Drug Use History: Marijuana General Exam Limitations: no limitations General appearance: alert, in no apparent distress Head exam: Present: atraumatic, normocephalic, normal inspection Eye exam: Present: normal appearance, PERRL, EOMI. Absent: scleral icterus, conjunctival injection, periorbital swelling Pupils: Present: normal accommodation ENT exam: Present: normal exam, mucous membranes moist Neck exam: Present: normal inspection, full ROM. Absent: tenderness, meningismus, lymphadenopathy, thyromegaly Respiratory exam: Present: normal lung sounds bilaterally. Absent: respiratory distress, wheezes, rales, rhonchi, stridor Cardiovascular Exam: Present: regular rate, normal rhythm, normal heart sounds. Absent: systolic murmur, diastolic murmur, rubs, gallop, clicks GI/Abdominal exam: Present: soft, normal bowel sounds. Absent: distended, tenderness, guarding, rebound, rigid Extremities exam: Present: normal inspection, full ROM, normal capillary refill. Absent: tenderness, pedal edema, joint swelling, calf tenderness Right Upper Leg exam: Present: full ROM Knee exam: Present: full ROM, erythema (right medial knee) Lower Leg exam: Present: full ROM Ankle exam: Present: full ROM Foot/Toe exam: Present: full ROM Course Vital Signs 06/22/20 06/22/20 16:06 17:30 Temperature 97.0 F L Pulse Rate 93 82 Respiratory 18 18 Rate Blood Pressure 139/94 98/67 O2 Sat by Pulse 97 94 L Oximetry Medical Decision Making - Medical Decision Making Patient up and ambulatory with steady gait, patient given 1 g of Keppra in the emergency room. Will be given a prescription for Keppra as previously prescribed 750 mg twice a day. Patient encouraged to follow up with his primary care doctor tangela vale. Case discussed with who was agreeable to this plan. - Lab Data Result diagrams: 06/22/20 17:00 06/22/20 17:00 Lab Results 06/22/20 06/22/20 Range/Units 17:00 17:00 WBC 11.9 H (3.8-10.6) k/uL RBC 4.56 (4.30-5.90) m/uL Hgb 13.5 (13.0-17.5) gm/dL Hct 41.7 (39.0-53.0) % MCV 91.5 (80.0-100.0) fL MCH 29.7 (25.0-35.0) pg MCHC 32.4 (31.0-37.0) g/dL RDW 14.1 (11.5-15.5) % Plt Count 262 (150-450) k/uL MPV 8.1 Neutrophils % 88 % Lymphocytes % 7 % Monocytes % 4 % Eosinophils % 1 % Basophils % 0 % Neutrophils # 10.5 H (1.3-7.7) k/uL Lymphocytes # 0.8 L (1.0-4.8) k/uL Monocytes # 0.5 (0-1.0) k/uL Eosinophils # 0.1 (0-0.7) k/uL Basophils # 0.1 (0-0.2) k/uL Sodium 134 L (137-145) mmol/L Potassium 4.1 (3.5-5.1) mmol/L Chloride 99 (98-107) mmol/L Carbon Dioxide 22 (22-30) mmol/L Anion Gap 13 mmol/L BUN 13 (9-20) mg/dL Creatinine 0.75 (0.66-1.25) mg/dL Est GFR (CKD-EPI)AfAm >90 (>60 ml/min/1.73 sqM) Est GFR (CKD-EPI)NonAf >90 (>60 ml/min/1.73 sqM) Glucose 188 H (74-99) mg/dL Calcium 9.3 (8.4-10.2) mg/dL Total Bilirubin 0.5 (0.2-1.3) mg/dL AST 25 (17-59) U/L ALT <12 (4-49) U/L Alkaline Phosphatase 68 (38-126) U/L Total Protein 7.6 (6.3-8.2) g/dL Albumin 4.6 (3.5-5.0) g/dL - EKG Data EKG shows normal: sinus rhythm, intervals (Ventricular rate of 103, TN interval 0.13, QRS 0.6, QTC .479) Disposition Clinical Impression: Seizure disorder Disposition: HOME SELF-CARE Condition: Fair Instructions (If sedation given, give patient instructions): Recurrent Seizures in Adults (ED) Additional Instructions: Take Keppra medication as prescribed and follow up with your primary care doctor in 1 week. Prescriptions: levETIRAcetam [Keppra] 750 mg PO BID 30 Days #60 tab Is patient prescribed a controlled substance at d/c from ED?: No Referrals: None,Stated [Primary Care Provider] - 1-2 days Time of Disposition: 19:20
[2020-06-22 17:28] LABS: Basophils # (A) 0.1 k/uL (0-0.2); Basophils % (A) 0 %; Eosinophils # (A) 0.1 k/uL (0-0.7); Eosinophils % (A) 1 %; HCT 41.7 % (39.0-53.0); HGB 13.5 gm/dL (13.0-17.5); Lymphocytes # (A) 0.8 k/uL (1.0-4.8); Lymphocytes % (A) 7 %; MCH 29.7 pg (25.0-35.0); MCHC 32.4 g/dL (31.0-37.0); MCV 91.5 fL (80.0-100.0); Mean Platelet Volume 8.1; Monocytes # (A) 0.5 k/uL (0-1.0); Monocytes % (A) 4 %; Neutrophils # (A) 10.5 k/uL (1.3-7.7); Neutrophils % (A) 88 %; Platelet Count 262 k/uL (150-450); RBC 4.56 m/uL (4.30-5.90); RDW 14.1 % (11.5-15.5); WBC 11.9 k/uL (3.8-10.6)
[2020-06-22 17:47] LABS: AST 25 U/L (17-59); African American GFR (CKD) >90 (>60 ml/min/1.73 sqM); Albumin 4.6 g/dL (3.5-5.0); Alkaline Phosphatase 68 U/L (38-126); Anion Gap 13 mmol/L; Blood Urea Nitrogen 13 mg/dL (9-20); Calcium 9.3 mg/dL (8.4-10.2); Carbon Dioxide 22 mmol/L (22-30); Chloride 99 mmol/L (98-107); Glucose 188 mg/dL (74-99); Non-African American GFR(CKD) >90 (>60 ml/min/1.73 sqM); Potassium 4.1 mmol/L (3.5-5.1); Sodium 134 mmol/L (137-145); Total Bilirubin 0.5 mg/dL (0.2-1.3); Total Protein 7.6 g/dL (6.3-8.2)
[2020-06-22 18:35] LABS: ALT <12 U/L (4-49)
[2020-06-22 19:36] VITALS: PULSE 76; TEMP 98.2
[2020-06-22 19:37] VITALS: BP 105/74
[2020-06-22] MEDS ORDERED: ONDANSETRON 4 MG/2 ML VIAL IVP STA (19:48)
== END 2020-06-22 20:22 | disposition home or self-care (01) ==
LOC: EC 15:47
DX: R56.9 Unspecified convulsions (principal); F17.200 Nicotine dependence, unspecified, uncomplicated; Z79.51 Long term (current) use of inhaled steroids; Z79.899 Other long term (current) drug therapy; Z85.819 Personal history of malignant neoplasm of unspecified site of lip, oral cavity, and pharynx; F12.90 Cannabis use, unspecified, uncomplicated
CPT/HCPCS: 36415; 93005; 80053; 85025; 99284; 96374; 96375; 96361; J2405; J1953